=== PATIENT | female | born 1935 | race Native Hawaiian/Other Pacific Islander ===

== ENCOUNTER 2016-11-25 05:36 | Emergency (ER) | payer MEDICARE | END 2016-11-25 07:17 | disposition home or self-care (01) | DX: S20.229A Contusion of unspecified back wall of thorax, initial encounter (principal); W10.9XXA Fall (on) (from) unspecified stairs and steps, initial encounter; Y92.008 Other place in unspecified non-institutional (private) residence as the place of occurrence of the external cause ==

== ENCOUNTER 2018-05-11 07:44 | Emergency (ER) | payer MEDICARE ==
[2018-05-11] MEDS ORDERED: LIDOCAINE PATCH 5% TOP PRN (08:02)
--- NOTE | 2018-05-11 08:06 | ED Physician Documentation ---
History of Present Illness - Stated complaint Stated Complaint: HEAD INJ GLF - Chief complaint Chief Complaint: Neuro - Additonal information Additional information: hx from pt and family 83 f states she was acting a bit ff last night - making her morning tea at 11 PM and complaining of a MENA the sx improved with cold compresses and she went to bed she got up in the middle of the night to go to the bathroom and lost her balance and fell striking the R side of her head no LOC no MENA now R and posterior neck pain no numbness or weakness no fever no cough no NVD no urinary sx no CP no palp no dyspnea no abd pain no numbness or weakness Review of Systems Constitutional: denies: Fever, Chills Cardiac: denies: Chest pain / pressure Respiratory: denies: Dyspnea GI: denies: Nausea, Vomiting, Diarrhea : denies: Dysuria Musculoskeletal: reports: Neck pain, Joint pain Neurologic: reports: Head injury. 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 : None HEENT: None Psych: None Musculoskeletal: None Derm: None - Past Surgical History Past Surgical History: No - Present Medications Home Medications: Ambulatory Orders Medication Instructions Recorded Confirmed Amlodipine Besylate 10 mg PO 05/11/18 05/11/18 Lidocaine Patch 5% [Lidoderm Patch] 1 each TOP DAILY PRN #10 patch 05/11/18 Losartan Potassium 100 mg PO 05/11/18 - Allergies Allergies/Adverse Reactions: Allergies Allergy/AdvReac Type Severity Reaction Status Date / Time No Known Drug Allergies Allergy Verified 11/25/16 05:53 - Social History Does the pt smoke?: No Smoking Status: Never smoker Does the pt drink ETOH?: No Does the pt have substance abuse?: No - Immunizations Immunizations are current?: Yes - POLST Patient has POLST: No PD ED PE NORMAL - Vitals Vital signs reviewed: Yes - General General: Alert and oriented X 3 - HEENT HEENT: PERRL, Other (some slightl R FH swelling but family states that is old no skull TTP or laceration, no rao sign or racoon eyes) - Neck Neck: Other (most posterior R neck TTP) - Cardiac Cardiac: RRR - Respiratory Respiratory: No respiratory distress, Clear bilaterally - Abdomen Abdomen: Non tender - Derm Derm: Normal color - Extremities Extremities: Other (TTP posterior R shoulder, full int ext rotation, MSV intact) - Neuro Neuro: Alert and oriented X 3, lumber straightened 2-12 intact, No motor deficit, No sensory deficit, Normal speech Eye Opening: Spontaneous Motor: Obeys Commands Verbal: Oriented GCS Score: 15 Results - Vitals Vitals: Vital Signs - 24 hr 05/11/18 07:55 Temperature 36.3 C L Heart Rate 67 Respiratory 17 Rate Blood Pressure 161/79 H O2 Saturation 99 Oxygen O2 Source Room air - Labs Labs: Laboratory Tests 05/11/18 08:10 Urine Color YELLOW Urine Clarity CLEAR Urine pH 6.0 Ur Specific [place] 1.010 Urine Protein NEGATIVE Urine Glucose (UA) NEGATIVE Urine Ketones NEGATIVE Urine Occult Blood TRACE-LYSE Urine Nitrite NEGATIVE Urine Bilirubin NEGATIVE Urine Urobilinogen 0.2 (NORMAL) Ur Leukocyte Esterase NEGATIVE Ur Microscopic Review NOT INDICATED Urine Culture Comments NOT INDICATED - Rads (name of study) CTH Radiology: See rad report (no acute) CTCS Radiology: See rad report (no acute injury but thyroid mass req further wup) shoulder Radiology: See rad report (osteopenic but appears to have a proximal humerus fx) PD MEDICAL DECISION MAKING - Sepsis Event Vital Signs: Vital Signs - 24 hr 05/11/18 07:55 Temperature 36.3 C L Heart Rate 67 Respiratory 17 Rate Blood Pressure 161/79 H O2 Saturation 99 Oxygen O2 Source Room air Departure - Departure Disposition: 01 Home, Self Care Clinical Impression: Fall Qualifiers: Encounter type: initial encounter Qualified Code(s): W19.XXXA - Unspecified fall, initial encounter Head injury Qualifiers: Encounter type: initial encounter Qualified Code(s): S09.90XA - Unspecified injury of head, initial encounter Proximal humerus fracture Qualifiers: Encounter type: initial encounter Fracture type: closed Fracture morphology: other fracture Fracture alignment: nondisplaced Laterality: right Qualified Code (s): S42.294A - Other nondisplaced fracture of upper end of right humerus, initial encounter for closed fracture Condition: Good Instructions: ED Head Injury Closed, ED Fx Shoulder, ED Sling Follow-Up: [facility] [Provider Group] Jose Ackerman MD [Primary Care Provider] - Prescriptions: Lidocaine Patch 5% [Lidoderm Patch] 1 each TOP DAILY PRN #10 patch PRN Reason: Pain Comments: The urine sample did not show any infection The CT scan of your head was fine - no skull fracture, no bleeding, no tumors. The CT scan of your neck did not show any injury but the radiologist did notice a mass that is likely connected to your thyroid and recommends that you get a thyroid ultrasound - please have your PMD order this Your bones are very thin - hard to see well on xray - but it looks like there is a crack in the top of your humerus arm bone. So you need to wear the sling and follow up with orthopedics. Several times a day you should take your arm out of the sling and do the pendulum exercises (see attached paperwork) to keep the shoulder joint from freezing Tylenol ice and lidocaine opatches as needed for the pain
[2018-05-11 08:22] LABS: BILIRUBIN,URINE NEGATIVE (NEGATIVE); GLUCOSE, URINE (UA) NEGATIVE (NEGATIVE); KETONES,URINE (UA) NEGATIVE (NEGATIVE); LEUKOCYTE ESTERASE, URINE NEGATIVE (NEGATIVE); NITRITE,URINE NEGATIVE (NEGATIVE); OCCULT BLOOD,URINE TRACE-LYSE (NEGATIVE); PROTEIN,URINE NEGATIVE (NEGATIVE); UROBILINOGEN,URINE 0.2 (NORMAL) E.U./dL (NORMAL)
[2018-05-11 08:25] LABS: CLARITY,URINE CLEAR (CLEAR)
--- NOTE | 2018-05-11 08:49 | XRAY Report ---
Procedure Date: 05/11/2018 Accession Number: [id number] / [id number] Procedure: XR - Shoulder 3 View RT CPT Code: FULL RESULT: EXAM: RIGHT SHOULDER RADIOGRAPHY EXAM DATE: 05/11/2018 08:31 AM. CLINICAL HISTORY: Fall R posterior shoulder pain. COMPARISON: None. TECHNIQUE: 3 views. FINDINGS: Bones: Question linear lucency through the anatomic neck of the humerus on the external rotation view. Suboptimal evaluation for fracture secondary to diffuse demineralization. Joints: No dislocation. Severe chondrocalcinosis. Soft tissues: The visualized hemithorax grossly clear. IMPRESSION: Suboptimal evaluation secondary to demineralization. An acute, nondisplaced fracture through the anatomic neck of the humerus is not excluded. Consider CT for further evaluation if there is persistent clinical concern. RADIA
--- NOTE | 2018-05-11 08:56 | CT Report ---
Procedure Date: 05/11/2018 Accession Number: [id number] / [id number] Procedure: CT - Head W/O CPT Code: FULL RESULT: EXAM: CT HEAD EXAM DATE: 05/11/2018 08:45 AM. CLINICAL HISTORY: Acute pain due to trauma. COMPARISON: None. TECHNIQUE: Multiaxial CT images were obtained from the foramen magnum to the vertex. Reformats: Sagittal and coronal. IV contrast: None. In accordance with CT protocol optimization, one or more of the following dose reduction techniques were utilized for this exam: automated exposure control, adjustment of mA and/or KV based on patient size, or use of iterative reconstructive technique. FINDINGS: Parenchyma: No intraparenchymal hemorrhage. No evidence of mass, midline shift, or CT findings of acute infarction. Jennings-white differentiation is distinct. Diffuse chronic microangiopathic white matter changes are evident. Extraaxial Spaces: Normal for age. No subdural or epidural collections identified. Ventricles: The ventricles and cortical sulci are enlarged, consistent with age-related tissue loss. Sinuses and orbits: Imaged paranasal sinuses, orbits, and mastoids show no significant abnormality. Bones: No evidence of fracture or calvarial defect. Other: None. IMPRESSION: Generalized age-related cortical atrophic changes without evidence of acute intracranial abnormality. RADIA
--- NOTE | 2018-05-11 09:17 | CT Report ---
Procedure Date: 05/11/2018 Accession Number: [id number] / [id number] Procedure: CT - Cervical Spine W/O CPT Code: FULL RESULT: EXAM: CT CERVICAL SPINE WITHOUT CONTRAST DATE: 05/11/2018 08:45 AM. HISTORY: Fall, R head injury, neck pain. COMPARISONS: None. TECHNIQUE: Thin-section axial images were acquired of the cervical spine without contrast. Post-processing: Coronal and sagittal reformats. Other: None. In accordance with CT protocol optimization, one or more of the following dose reduction techniques were utilized for this exam: automated exposure control, adjustment of mA and/or KV based on patient size, or use of iterative reconstructive technique. FINDINGS: Alignment: Grade 1 anterolisthesis of C4 on C5 is likely degenerative. No other spondylolisthesis. Bones: No acute fracture. Interspace Levels/Facets: Moderate to severe degenerative change at the atlantoaxial articulation. Moderate to severe decreased disk height throughout. Severe multilevel facet arthropathy. Other: No prevertebral soft tissue thickening. Hypodense right paramedian mass, posterior to the thyroid, containing coarse calcifications measures 4.0 x 3.0 x 3.5 cm The lung apices are clear. IMPRESSION: 1. No acute fracture or subluxation in the cervical spine. 2. Right paramedian anterior neck mass, possibly associated with the thyroid gland. Recommend thyroid ultrasound for further evaluation if this has not been previously performed. RADIA
[2018-05-11 09:31] VITALS: BP 146/78
== END 2018-05-11 09:31 | disposition home or self-care (01) ==
LOC: ED 07:44
DX: S09.90XA Unspecified injury of head, initial encounter (principal); S42.294A Other nondisplaced fracture of upper end of right humerus, initial encounter for closed fracture; W18.30XA Fall on same level, unspecified, initial encounter; W22.8XXA Striking against or struck by other objects, initial encounter
CPT/HCPCS: 70450; 72125; 73030; 81003; 99283; A9270; 81001; 87086

== ENCOUNTER 2019-08-19 15:27 | Inpatient (IN) | payer MEDICARE, OTHER ==
[2019-08-19 16:47] LABS: BASOPHILS # (AUTO) 0.1 10^3/uL (0.0-0.1); BASOPHILS % (AUTO) 0.5 %; EOSINOPHILS % (AUTO) 0.2 %; LYMPHOCYTES % (AUTO) 7.8 %; MEAN CORPUSCULAR HEMOGLOBIN 30.3 pg (27.0-31.0); MEAN CORPUSCULAR HGB CONC 31.6 g/dL (32.0-36.0); MEAN PLATELET VOLUME 9.3 fL (7.9-10.8); MONOCYTES # (AUTO) 0.8 10^3/uL (0.0-1.0); MONOCYTES % (AUTO) 6.3 %; NEUTROPHILS % (AUTO) 84.6 %; PLT - PLATELET COUNT 330 10^3/uL (130-450); RED BLOOD COUNT 3.96 10^6/uL (4.20-5.40); RED CELL DISTRIBUTION WIDTH 12.8 % (12.0-15.0)
[2019-08-19] MEDS ORDERED: SODIUM CHLORIDE 0.9% 1,000 ML IV ONE ×2 (17:04→17:14)
--- NOTE | 2019-08-19 17:04 | ED Physician Documentation ---
History of Present Illness - Stated complaint Stated Complaint: FEMALE /LETHARGIC - Chief complaint Chief Complaint: General - History obtained from History obtained from: Family (The history is from the daughter. This is a demented 84-year-old woman who was in assisted living up until about a month ago and the daughter brought her home because she was developing some paranoia with her dementia and had to get out of there. She has help at home, but over the last 5 days or so she is had a fall without real injury but complaining of buttock and hip pain, she refuses to bear weight but more because of weakness than pain, she will not get out of bed, she not eating or drinking.) Review of Systems Unable to obtain: Dementia PD PAST MEDICAL HISTORY - Past Medical History Cardiovascular: None Respiratory: None Endocrine/Autoimmune: None GI: None NURSE RESEARCH: None : None HEENT: None Psych: None Musculoskeletal: None Derm: None - Past Surgical History Past Surgical History: No - Present Medications Home Medications: Ambulatory Orders Medication Instructions Recorded Confirmed Amlodipine Besylate 10 mg PO 05/11/18 05/11/18 Lidocaine Patch 5% [Lidoderm Patch] 1 each TOP DAILY PRN #10 patch 05/11/18 Losartan Potassium 100 mg PO 05/11/18 - Allergies Allergies/Adverse Reactions: Allergies Allergy/AdvReac Type Severity Reaction Status Date / Time No Known Drug Allergies Allergy Verified 11/25/16 05:53 - Social History Does the pt smoke?: No Smoking Status: Never smoker Does the pt drink ETOH?: No Does the pt have substance abuse?: No - Immunizations Immunizations are current?: Yes - POLST Patient has POLST: No PD ED PE NORMAL - General General: Other (Certain oriented to person, minimally cooperative, thin) - HEENT HEENT: PERRL, EOMI - Neck Neck: Supple, no meningeal sign, No bony TTP - Cardiac Cardiac: RRR, No murmur - Respiratory Respiratory: No respiratory distress, Clear bilaterally - Abdomen Abdomen: Non tender - Back Back: No CVA TTP, No spinal TTP - Extremities Extremities: Other (The right hip is nontender and I am able to passively internally and externally rotate it without pain) - Neuro Eye Opening: To Voice Motor: Obeys Commands Verbal: Confused GCS Score: 13 Results - Vitals Vitals: Vital Signs - 24 hr 08/19/19 08/19/19 15:55 18:36 Temperature 36.9 C 36.3 C L Heart Rate 85 86 Respiratory 18 20 Rate Blood Pressure 153/106 H 200/96 H O2 Saturation 97 99 Oxygen O2 Source Room air - Labs Labs: Laboratory Tests 08/19/19 08/19/19 08/19/19 16:38 16:38 18:30 WBC 13.0 H RBC 3.96 L Hgb 12.0 Hct 38.0 MCV 96.0 MCH 30.3 MCHC 31.6 L RDW 12.8 Plt Count 330 MPV 9.3 Neut # (Auto) 11.0 H Lymph # (Auto) 1.0 L [place] # (Auto) 0.8 Eos # (Auto) 0.0 Baso # (Auto) 0.1 Absolute Nucleated RBC 0.00 Nucleated RBC % 0.0 Sodium 142 Potassium 4.4 Chloride 110 Carbon Dioxide 20 L Anion Gap 12.0 BUN 59 H Creatinine 3.3 H Estimated GFR (MDRD) 13 L Glucose 94 Calcium 16.2 H* Total Bilirubin 1.1 H AST 70 H ALT 22 Alkaline Phosphatase 194 H Total Protein 8.0 Albumin 3.8 Globulin 4.2 Albumin/Globulin Ratio 0.9 L Lipase 34 Urine Color YELLOW Urine Clarity CLEAR Urine pH 6.0 Ur Specific [place] 1.020 Urine Protein 100 H Urine Glucose (UA) NEGATIVE Urine Ketones TRACE Urine Occult Blood LARGE H Urine Nitrite NEGATIVE Urine Bilirubin NEGATIVE Urine Urobilinogen 0.2 (NORMAL) Ur Leukocyte Esterase NEGATIVE Urine RBC None Seen Urine WBC 0-3 Ur Squamous Epith Cells NONE SEEN Urine Bacteria None Seen Ur Microscopic Review INDICATED Urine Culture Comments NOT INDICATED PD MEDICAL DECISION MAKING - ED course ED course: This is a braden 84-year-old woman with dementia presents with worsened mental status and is found to be hypercalcemic. She does have some level of chronic hypercalcemia, but this is much worse than her baseline and is associated with acute renal failure. Spoke with Dr. Al for admission at 7:42 PM. Departure - Departure Disposition: [facility] DC/Xfer Clinical Impression: Hypercalcemia ARF (acute renal failure) Qualifiers: Acute renal failure type: unspecified Qualified Code(s): N17.9 - Acute kidney failure, unspecified Condition: Serious
[2019-08-19 17:10] LABS: ALBUMIN 3.8 g/dL (3.2-5.5); ALBUMIN/GLOBULIN RATIO 0.9 (1.0-2.2); BILIRUBIN,TOTAL 1.1 mg/dL (0.2-1.0); CREATININE 3.3 mg/dL (0.4-1.0)
[2019-08-19 17:12] LABS: CALCIUM 16.2 mg/dL (8.5-10.3)
--- NOTE | 2019-08-19 17:34 | XRAY Report ---
Reason: R hip pain s/p fall Procedure Date: 08/19/2019 Accession Number: [id number] / [id number] Procedure: XR - Hip w/Pelvis 2-3V RT CPT Code: Final Report FULL RESULT: EXAM: RIGHT HIP RADIOGRAPHY EXAM DATE: 08/19/2019 04:26 PM. CLINICAL HISTORY: R hip pain s/p fall. COMPARISON: None. TECHNIQUE: 2 views. FINDINGS: Bones: Normal. No fractures or bone lesion. 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 Soft Tissues: Normal. No soft tissue swelling. A calcified focus is seen projected over the left iliac bone/left lower quadrant; likely a fecolith. IMPRESSION: No acute displaced fracture or malalignment. RADIA
[2019-08-19 18:57] LABS: BILIRUBIN,URINE NEGATIVE (NEGATIVE); GLUCOSE, URINE (UA) NEGATIVE (NEGATIVE); KETONES,URINE (UA) TRACE mg/dL (NEGATIVE); LEUKOCYTE ESTERASE, URINE NEGATIVE (NEGATIVE); NITRITE,URINE NEGATIVE (NEGATIVE); OCCULT BLOOD,URINE LARGE (NEGATIVE); PROTEIN,URINE 100 mg/dL (NEGATIVE); UROBILINOGEN,URINE 0.2 (NORMAL) E.U./dL (NORMAL)
[2019-08-19 19:29] LABS: CLARITY,URINE CLEAR (CLEAR)
[2019-08-19 19:30] LABS: BACTERIA,URINE None Seen /HPF (None Seen); RBC,URINE None Seen /HPF (0-5); SQUAMOUS EPITHELIAL CELL,UR NONE SEEN (<= Few)
[2019-08-19] MEDS ORDERED: ONDANSETRON 4 MG/2 ML VIAL IVP PRN (19:42)
[2019-08-19] MEDS ORDERED: ONDANSETRON ODT 4 MG TABLET TL PRN (19:42)
[2019-08-19] MEDS ORDERED: CALCITONIN 400 UNITS/2 ML VIAL IM ONE ×2 (19:42→23:00)
[2019-08-19] MEDS ORDERED: oxyCODONE 5 MG TABLET PO PRN (19:42)
[2019-08-19] MEDS ORDERED: amLODIPine 5 MG TABLET PO SCH (19:49)
[2019-08-19] MEDS ORDERED: LOSARTAN 50 MG TABLET PO SCH (19:50)
[2019-08-19] MEDS ORDERED: DENOSUMAB 60 MG/ML SYRINGE SUBQ ONE ×2 (19:52→23:00)
[2019-08-19] MEDS: SODIUM CHLORIDE 0.9% 1,000 ML IV SCH ×2 (21:22→23:04)
[2019-08-19] MEDS: FAMOTIDINE 20 MG/2 ML VIAL IVP SCH (21:23)
[2019-08-19] MEDS: amLODIPine 5 MG TABLET PO SCH (22:24)
[2019-08-19] MEDS: LOSARTAN 50 MG TABLET PO SCH (22:29)
--- NOTE | 2019-08-19 22:52 | ADVANCE CARE PLANNING NOTE ---
Advance Care Planning - Planning Encounter Date: 08/19/19 Time: 22:49 Purpose: DaughterKRISHNA Wendy Pulu @ [phone] wants to review resuscitative status Parties in Attendance: Patient, Daughter, hospitalist Decisional Capacity of the Patient: impaired. She is confused, delusional, mumbling and has been paranoid for weeks now - Diagnosis for Encounter (1) Hyperparathyroidism Summary: Elderly [place] female who was identified as having hypercalcemia as early as 2012. By 2013, calcium level was between 12-13 and she was identified as having an elevated PTH at approximately 838. She was seen by endocrinology in October 2014. With their visit, they determined that she did not have a history of osteoporosis (no DEXA scan was done), that she did not have kidney stones, and was asymptomatic from this elevated calcium. The plan was to follow the calcium level and when it was greater than 13 to be considered for parathyroidectomy. However the patient has been adamant that she never wanted surgery, no matter how high the calcium. This thought process is a consistent one for her. In review of the medical record for all of her medical problems including hypertension and asthma she is minimally compliant. She is very strong-willed and does not believe in taking medications and does not like side effects and as such is off her medications more often than she is on them. - Encounter Subjective/Patient's Story: She was born and raised in [facility]. First was some own, second was in [place], third has been with someone. [place] She does have another child, a son, but he does not live on the [place]. She and her were both very active individuals. Played a lot of golf. However, as age has come up on them, they have become frail, needing more help. They moved into [facility] April 2019. However the patient is hated living there. She has become paranoid and delusional and feels that people are out to hurt her, and she is very suspicious of them. So her daughter brought her home to live with her 3 weeks ago. It is been very difficult because mom is very noncompliant, suspicious. In addition, her son-in-law is ill with a cold, and he is pretty sick living upstairs. Mom is living downstairs. The patient's daughter is overwhelmed. She describes mom is always very independent. Very stubborn. Does not like taking medications. Blood pressure has been as high as 200 systolic at times and she refuses to take her blood pressure medicine. Asthma has been relatively stable. She also refuses to take her Qvar and albuterol. She has been gradually losing weight. Back in October 2006 she was 166 pounds, and in May 2019 she is now 113 pounds. Daughter feels like mom is failing. She is resigned herself to the fact that mom actually may in the near future. With 1 of their visits to her primary care provider, this past May, she did fell out a physician order for life-sustaining treatment. However it is not dated. That order states that the patient wanted to be full code with full treatment. However, her daughter, who is her power of managing attorney. Feels that is not in her mother's best interest. She found it very difficult to bring that topic up in the office that day. She definitely has the forms stating that she is the power of managing attorney. Mom is been failing, losing weight, fading, becoming more delusional and paranoid, and she does not feel that it is in her mother's best interest to be a full code. Her quality of life, and unhappiness overall is a consideration. While she does hope that this current admission will treat the hypercalcemia and make her mother feel better, she does not have expectations that her mother's life will be substantially changed. Mom will still be independent, noncompliant, and refuse surgery. So she expects the calcium to climb up again. I did explain that sometimes we could give Prolia or Xgeva on a regular basis. The daughter explained that she does not think mom will be compliant with that. Objective/Medical Story: Elderly [place] female. Records reviewed from her primary care provider office. There is sometimes a year in between visits. She was a no-show for her August 03 and August 05 visits. She has become lethargic, has decreased appetite, is falling. Went to go live at [facility] April 2019 did not like it and is become more delusional and paranoid. As such she [facility] and went to go live with her daughter for the last 3 weeks. Her past medical history is that of hypertension, asthma, deafness. Noncompliant with her medical regime for as far back as a medical record goes. She now comes into the hospital with severe lethargy, unable to get out of bed, and in the emergency room has severe hypercalcemia to 16 with acute renal failure and a creatinine over 3. Goals of Care: 1. Focus on keeping the patient comfortable with as limited interventions as possible. However, the daughter still wants her to be admitted to the hospital if she needs things such as antibiotics for pneumonia, blood transfusions for GI bleeds, surgery for fractures, etc.The daughter chooses this because she wants to honor her mom's philosophy of not liking doctors and not liking being in the hospitals. It is too hard to get her mom to be compliant. 2. IV fluids, Prolia, calcitonin to bring down the calcium. See if this will then help with mentation, weakness, anorexia. Plan: Hospitalization to treat her hypercalcemia and renal failure. Transition the patient to possible palliative care consultation in the near future. New POLST form filled out for daughter to take home and copy for us. Code Status: Do Not Attempt Resuscitation Time spent on advance care plannin
[2019-08-19] MEDS ORDERED: DENOSUMAB 120 MG/1.7 ML VIAL SUBQ ONE (23:00)
[2019-08-20] MEDS: SODIUM CHLORIDE FLUSH 0.9% 10 ML SYRINGE IVP SCH ×3 (00:40→16:58)
--- NOTE | 2019-08-20 01:54 | HISTORY & PHYSICAL EXAMINATION ---
DATE OF SERVICE: 08/19/2019 Physician: Batsheva Al MD PRIMARY CARE PROVIDER: Steph Becker PA-C ADMITTING PROVIDER: Batsheva Al MD CHIEF COMPLAINT: Fall five days ago, was not able to get out of bed since then. HISTORY OF PRESENT ILLNESS: The patient is an elderly Portuguese female whose past medical history is that of hypertension, asthma, and probable dementia. Her philosophy with regard to taking care of herself and interacting with doctors has always been one of "less is more." In reading the medical record in [facility], which also has copies of her previous chart with another physician, this patient is stoutly noncompliant. She is off of her medications more than she is on them. At times, her systolic blood pressure has been close to 200 and she still does not want to take medications because "they have too many side effects." She was to her third and came to live on [facility] to be close to her daughter. They are described as an active elderly couple who love to golf, go out with dinner to see friends. However, the patient has been gradually losing weight when you see the medical record. She was 166 pounds in October 2006, 152 pounds in May 2008, 145 pounds in June 2009, 146 pounds in January 2011. She has been steadily continuing to lose weight, so that she was 120 pounds July 2016, and down to 113 pounds since May 2018. She has been maintained at 113 pounds. She was identified as having hypercalcemia in 2012 and was diagnosed with hyperparathyroidism by 2013. PTH was about 834. The patient was sent to see an personnel counselor in October 2014. At that point in time, the personnel counselor felt that she did not have a history of osteoporosis (but she had no DEXA scan ordered), no history of kidney stones, and no "stones, moans, abdominal groans" symptomatic of hyperparathyroidism. As such, he recommended that she not get her parathyroid removed unless her calcium was 13 or above or she was developing symptoms. The patient was, at one point, offered surgery, but she declined it. She just does not like seeing physicians and getting procedures. She has been sporadic in seeing her doctors. She has had sporadic follow up for the calcium levels. She was seen a few times in 2018 for her hypertension. Then, after April 2018 no visits until April 2019. She has been a no show for her visit is 08/03/2019, 08/05/2019. The office has called the patient to warn her that she is in danger of being discharged from the office and the patient declined to remake another appointment. However, this patient is demented. She has been gradually failing, having decreased appetite, having more increasing delusions of paranoia. The family convinced her to move into [facility], April 2019. She is to her third . He is in his 80s and moved in with her, but she has been a handful. He cannot handle her delusions, suspiciousness, and refusal to take her medications or to eat. The daughter finally took her out of [facility] three weeks ago to live with her. It has been very difficult. Mom continues to be suspicious, difficult to coax into taking her food and medications. She fell about a week ago. No syncope. She seemed to have lost her balance and tripped. But she has been complaining of buttock pain, sacral pain, and hip pain. With this fall, she just started not getting out of bed. She has not been eating or drinking. Her confusion, and delusional thought process with paranoia continues and is getting worse. In the emergency room, Dr. White saw this patient. Temperature is 36.9, pulse 85, blood pressure 153/106, respirations 18 and 97% on room air. In the emergency room, her blood pressure went as high as 200/96. She is a frail, elderly, female. Mumbling, not making much sense. No real findings on cardiovascular exam. However, her BUN is 59 and creatinine is 3.3. Her BUN was 25 in February 2015 and 24 in August 2014. Her creatinine is 3.3. She was 1.3 in August 2014, and 1.4 in February 2015. Her PTH level was 843 back in August 2014. She is now 3077. Urinalysis has a large amount of occult blood, but no red cells were seen, 0-3 white cells, no squamous epithelial cells, no bacteria. Her hip and pelvis x-ray have a calcified focus projected over the left iliac bone/left lower quadrant. Likely a fecalith. But no acute displaced fracture or malalignment. The patient is now admitted to treat the calcium. PAST MEDICAL HISTORY 1. Hypertension. 2. Dementia. 3. Asthma. 4. Noncompliance with medications. 5. Dyspnea on exertion January 2011 that really affected her golf game. A stress test was negative 01/30/2011. She was felt to have uncontrolled hypertension at that time with a systolic of over 190. Coaxed into trying to take her blood pressure medicines. 6. Deafness. 7. G2, P2. ALLERGIES: NO KNOWN DRUG ALLERGIES. MEDICATIONS: Medications that she is supposed to be taking are: 1. Amlodipine 10 mg a day. 2. Losartan 100 mg a day. SOCIAL HISTORY: She is from [place]. three times. First was Portuguese. She did have a son with her first . Second was an [place] gentleman and she had a daughter with him. Unfortunately, he of a heart attack at the age of 47. Her third is Portuguese. They moved to the [facility] to be close to the daughter, who has been keeping an eye out for them. The patient never smoked. Never had a problem with alcohol abuse. No history of recreational substance abuse. FAMILY HISTORY: Mom of complications of appendicitis in the [place] [employer]. Dad was an alcoholic and of complications of that. She had two sisters and one brother. One brother of liver cancer. Two sisters are alive, but elderly and frail and no major medical issues that she is aware of. Two children are healthy. Weight is problematic, but no blood pressure, cancer, heart attack, stroke, or parathyroid issues. PREVIOUS LEVEL OF FUNCTION: The patient has become increasingly frail, and needs help with activities of daily living. She was needing help to go to the bathroom, to be prompted more than anything else. Prompted to eat, prompted to bathe. But since falling, she has been in bed, unable to get out of bed. REVIEW OF SYSTEMS: Review of systems are from the daughter, the patient is unable to cooperate. Deafness is evident, poor appetite, decreasing urinary output, no bowel movements, hurting all over, but no specific coughing, wheezing, chest congestion, cold. There has been no orthopnea, edema, complaints of chest pain or palpitations. She has urinary incontinence. She has become increasingly forgetful, increasingly paranoid and delusional. As far as the daughter knows, she is not hallucinating. Rest of review of systems is negative per the daughter. PHYSICAL EXAMINATION GENERAL: The patient is on Med/Surg. She has received IV fluid wide open from the emergency room. Temperature is 36.8, pulse is 88, blood pressure 183/103, respirations 16 and 100% on room air. She was lethargic and unable to safely swallow while in the emergency room. She is now a little bit more awake, trying to talk to the daughter, and able to take the blood pressure medicines I have ordered. On general physical exam, she is a severely frail, malnourished, female at 5 feet 1 inch tall 43 kg. Bilateral temporal wasting, severely decreased muscle mass present. She is so weak, she can barely roll over on her left side. HEENT: Unremarkable other than dry cracked lips, dry and pale oral mucosa. Voice is low, hoarse, mumbling. The pupils are reactive, sclerae nonicteric. NECK: Supple. No JVD. LUNGS: No crackles, rhonchi, wheezing or increased respiratory effort. HEART: PMI is normally placed with a regular rate and rhythm and a soft systolic ejection murmur. ABDOMEN: Soft, scaphoid abdominal musculature, nontender, hypoactive bowel sounds. No masses palpable. EXTREMITIES: Remarkable for the severely decreased muscle mass. Thin. No clubbing, cyanosis or edema. 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 NEUROLOGIC: She is oriented to her daughter and who she is. She does not know where she is, she does not know the date, she does not know why she is here, needs constant reassurance, did not get out of bed. She lays there and tries to get out of bed, she has spontaneous purposeful movement of arms and legs. There is no focal weakness. But she cannot cooperate with reflex exam, or strength testing exam/strength challenge exams. Toes are downgoing. There are no tremors. Daughter tells me that her speech is not making any sense, and she is mumbling, and speaking about things that make no sense. LABORATORY DATA: Labs, cell count, urinalysis, and plain films reviewed in history of present illness. Calcium is 16.2. Total bilirubin 1.1. AST 70. Alkaline phosphatase 194. ASSESSMENT PLAN: 1. This elderly, female who presents with severe metabolic encephalopathy from documented hyperparathyroidism on labs with hypercalcemia. I explained to the daughter that the metabolic encephalopathy is most likely a worsening of a baseline dementia and cognitive deficit. However, her renal failure and hypercalcemia have made the "stones, moans, abdominal groans," much worse. Daughter does feel that all of those descriptions apply to mom. PLAN a. Inpatient admission. I anticipate this needing two to three days to correct her electrolytes. b. Attestation: The patient will be discharged within 96 hours. 2. Acute renal failure. Secondary to hypercalcemia. Plan: a. Lasix will be avoided. In review of the literature, they recommend normal saline at 200-300 mL an hour. b. Calcitonin is not available tonight. Pharmacist has come in and there is nasal calcitonin, but not subcutaneous calcitonin. As such, we will order it and then hopefully it will arrive by Thursday (today is Thursday). c. Prolia is not available, but Xgeva. As such, we will get a subcutaneous injection of 120 mg. d. Repeat calcium in the morning and monitor for hypoglycemia. 3. Hyperparathyroidism. The patient has no cognitive deficit that her power of director stars is kicked in with her daughter. Daughter says that no matter how much she has tried to talk mom into this surgery, mom has refused. Daughter doubts that she will be able to convince mom even after this admission. As such, the patient may need to be discharged on chronic injectables to control the calcium. 4. Hypertension that is uncontrolled due to noncompliance. She is awake enough now to take her Norvasc and Losartan and that will be given to her and resumed here. My goal is to at least get her into the mid 100 range. Anything between 140-150 is acceptable in this elderly woman who is usually as high as 180-200 systolic. I cannot believe that aiming for below 140 will achieve anything other than annoying her, and will most likely not change her overall life span. 5. History of asthma. Currently, it is controlled. We will order albuterol p.r.n. if necessary. a. Noncompliance with medical regime noted. Power of director stars is invoked by daughter. 6. Abnormal loss of weight noted. Most likely due to the hypercalcemia inducing anorexia and decreased appetite. Also, probably due to dementia. Nutrition consult. Hopefully, her appetite will improve once her calcium is below 10. 7. DO NOT RESUSCITATE status. Advanced care planning discussion dictated on a separate note. 8. Deep venous thrombosis prophylaxis will be SÁNCHEZ lopez. TD: 08/19/2019 23:38 EDITH
[2019-08-20] MEDS: SODIUM CHLORIDE 0.9% 1,000 ML IV SCH ×2 (02:42→06:24)
[2019-08-20] MEDS ORDERED: SODIUM CHLORIDE 0.9% 1,000 ML IV ONE (04:24)
[2019-08-20] MEDS ORDERED: SODIUM CHLORIDE FLUSH 0.9% 10 ML SYRINGE ONE (04:24)
[2019-08-20 05:21] LABS: BASOPHILS # (AUTO) 0.1 10^3/uL (0.0-0.1); BASOPHILS % (AUTO) 0.4 %; EOSINOPHILS % (AUTO) 0.1 %; HGB - HEMOGLOBIN 10.7 g/dL (12.0-16.0); LYMPHOCYTES # (AUTO) 0.9 10^3/uL (1.5-3.5); LYMPHOCYTES % (AUTO) 6.2 %; MEAN CORPUSCULAR HEMOGLOBIN 29.8 pg (27.0-31.0); MEAN CORPUSCULAR HGB CONC 30.1 g/dL (32.0-36.0); MEAN CORPUSCULAR VOLUME 99.2 fL (81.0-99.0); MEAN PLATELET VOLUME 9.5 fL (7.9-10.8); MONOCYTES # (AUTO) 0.7 10^3/uL (0.0-1.0); NEUTROPHILS # (AUTO) 12.2 10^3/uL (1.5-6.6); NEUTROPHILS % (AUTO) 87.7 %; PLT - PLATELET COUNT 292 10^3/uL (130-450); RED BLOOD COUNT 3.59 10^6/uL (4.20-5.40); RED CELL DISTRIBUTION WIDTH 13.1 % (12.0-15.0); WHITE BLOOD COUNT 13.9 x10^3/uL (4.8-10.8)
[2019-08-20 05:38] LABS: CREATININE 2.9 mg/dL (0.4-1.0); MAGNESIUM 1.5 mg/dL (1.7-2.8); PHOSPHORUS 4.6 mg/dL (2.5-4.6)
[2019-08-20 05:39] LABS: CALCIUM 15.1 mg/dL (8.5-10.3)
--- NOTE | 2019-08-20 06:47 | PROVIDER PROGRESS NOTE ---
Subjective - Prog Note Date Prog Note Date: 08/20/19 Prog Note Time: 06:45 - Subjective Subjective: she has been up all night. sitting up in bed, sometimes w legs thrown over the edge, sometimes with legs crisscrossed, sometime facing the foot of the bed, sometimes facing the head. Mumbling. Constantly rocking herself. will answer when questioned. Gets up to urinate when prompted. Bladder scan shows retention of 300's to 400's before that. Current Medications - Current Medications Current Medications: Active Medications Acetaminophen (Tylenol) 650 mg PO Q4HR PRN PRN Reason: Pain 1 to 4 Amlodipine Besylate (Norvasc) 10 mg PO DAILY [facility] Last Admin: 08/19/19 22:24 Dose: 10 mg Famotidine (Pepcid) 20 mg IVP BID [facility] Last Admin: 08/19/19 21:23 Dose: 20 mg Sodium Chloride (Normal Saline 0.9%) 1,000 mls @ 300 mls/hr IV .Q3H20M [facility] Last Admin: 08/20/19 06:24 Dose: 300 mls/hr Losartan Potassium (Cozaar) 100 mg PO DAILY [facility] Last Admin: 08/19/19 22:29 Dose: 100 mg Ondansetron HCl (Zofran Inj) 4 mg IVP Q6HR PRN PRN Reason: Nausea / Vomiting Ondansetron HCl (Zofran Odt) 4 mg TL Q6HR PRN PRN Reason: Nausea / Vomiting Oxycodone HCl (Roxicodone) 5 mg PO Q4HR PRN PRN Reason: Pain 5 to 7 Sodium Chloride (Normal Saline Flush 0.9%) 10 ml IVP PRN PRN PRN Reason: NEEDED PER PROVIDER ORDERS Sodium Chloride (Normal Saline Flush 0.9%) 10 ml IVP 0100,0900,1700 [facility] Last Admin: 08/20/19 00:40 Dose: Not Given Amlodipine Besylate 10 mg PO 05/11/18 Losartan Potassium 100 mg PO 05/11/18 Objective - Vital Signs/Intake & Output Reviewed Vital Signs: Yes Vital Signs: Vital Signs x48h Temp Pulse Resp BP Pulse Ox 08/20/19 00:00 36.7 C 75 16 139/90 H 99 Intake & Output: Intake & Output 11/1308/18/19 08/19/19 08/20/19 23:59 23:59 23:59 23:59 Intake Total 1510 2000 Output Total 0 550 Balance 1510 1450 - Objective General Appearance: positive: Alert, Other (rocking back and forth, elderly female w cachexia, no respiratory or cardiac distress) Eyes Bilateral: positive: PERRL, EOMI ENT: positive: Dry mucous membranes Neck: positive: No JVD. negative: Stiff neck, Carotid bruit Respiratory: positive: Chest non-tender. negative: Wheezes, Rales, Rhonchi Cardiovascular: positive: Regular rate & rhythm, Systolic murmur. negative: Gallop/S4, Friction rub Abdomen: positive: Non-tender, No organomegaly, Nml bowel sounds, No distention Skin: positive: Warm, Dry, Pallor Extremities: positive: Non-tender, No pedal edema Neurologic/Psychiatric: positive: CN's nml (2-12) (but you have to repeat yourself.), Motor nml, Disoriented to person, Disoriented to place, Disoriented to time, Other (when asked, "what are your doing?" as she faces head of bed and plays with the sheets, she laughs and states "I don't know") - Lab Results Fish Bones: 08/20/19 04:55 08/20/19 04:55 Other Labs: Lab Results x24hrs 08/20/19 08/20/19 08/19/19 Range/Units 04:55 04:55 18:30 WBC 13.9 H (4.8-10.8) x10^3/uL RBC 3.59 L (4.20-5.40) 10^6/uL Hgb 10.7 L (12.0-16.0) g/dL Hct 35.6 L (37.0-47.0) % MCV 99.2 H (81.0-99.0) fL MCH 29.8 (27.0-31.0) pg MCHC 30.1 L (32.0-36.0) g/dL RDW 13.1 (12.0-15.0) % Plt Count 292 (130-450) 10^3/uL MPV 9.5 (7.9-10.8) fL Neut # (Auto) 12.2 H (1.5-6.6) 10^3/uL Lymph # (Auto) 0.9 L (1.5-3.5) 10^3/uL Stanton # (Auto) 0.7 (0.0-1.0) 10^3/uL Eos # (Auto) 0.0 (0.0-0.7) 10^3/uL Baso # (Auto) 0.1 (0.0-0.1) 10^3/uL Absolute Nucleated RBC 0.00 x10^3/uL Nucleated RBC % 0.0 /100WBC Sodium 146 H (135-145) mmol/L Potassium 4.0 (3.5-5.0) mmol/L Chloride 117 H (101-111) mmol/L Carbon Dioxide 18 L (21-32) mmol/L Anion Gap 11.0 (6-13) BUN 52 H (6-20) mg/dL Creatinine 2.9 H (0.4-1.0) mg/dL Estimated GFR (MDRD) 16 L (>89) Glucose 92 (70-100) mg/dL Calcium 15.1 H* (8.5-10.3) mg/dL Phosphorus 4.6 (2.5-4.6) mg/dL Magnesium 1.5 L (1.7-2.8) mg/dL Total Bilirubin (0.2-1.0) mg/dL AST (10-42) IU/L ALT (10-60) IU/L Alkaline Phosphatase (42-121) IU/L Total Protein (6.7-8.2) g/dL Albumin (3.2-5.5) g/dL Globulin (2.1-4.2) g/dL Albumin/Globulin Ratio (1.0-2.2) Lipase (22-51) U/L PTH Intact (12-88) pg/mL Urine Color YELLOW Urine Clarity CLEAR (CLEAR) Urine pH 6.0 (5.0-7.5) PH Ur Specific [place] 1.020 (1.002-1.030) Urine Protein 100 H (NEGATIVE) mg/dL Urine Glucose (UA) NEGATIVE (NEGATIVE) mg/dL Urine Ketones TRACE (NEGATIVE) mg/dL Urine Occult Blood LARGE H (NEGATIVE) Urine Nitrite NEGATIVE (NEGATIVE) Urine Bilirubin NEGATIVE (NEGATIVE) Urine Urobilinogen 0.2 (NORMAL) (NORMAL) E.U./dL Ur Leukocyte Esterase NEGATIVE (NEGATIVE) Urine RBC None Seen (0-5) /HPF Urine WBC 0-3 (0-5) /HPF Ur Squamous Epith Cells NONE SEEN (<= Few) Urine Bacteria None Seen (None Seen) /HPF Ur Microscopic Review INDICATED Urine Culture Comments NOT INDICATED 08/19/19 08/19/19 08/19/19 Range/Units 16:38 16:38 16:38 WBC 13.0 H (4.8-10.8) x10^3/uL RBC 3.96 L (4.20-5.40) 10^6/uL Hgb 12.0 (12.0-16.0) g/dL Hct 38.0 (37.0-47.0) % MCV 96.0 (81.0-99.0) fL MCH 30.3 (27.0-31.0) pg MCHC 31.6 L (32.0-36.0) g/dL RDW 12.8 (12.0-15.0) % Plt Count 330 (130-450) 10^3/uL MPV 9.3 (7.9-10.8) fL Neut # (Auto) 11.0 H (1.5-6.6) 10^3/uL Lymph # (Auto) 1.0 L (1.5-3.5) 10^3/uL Stanton # (Auto) 0.8 (0.0-1.0) 10^3/uL Eos # (Auto) 0.0 (0.0-0.7) 10^3/uL Baso # (Auto) 0.1 (0.0-0.1) 10^3/uL Absolute Nucleated RBC 0.00 x10^3/uL Nucleated RBC % 0.0 /100WBC Sodium 142 (135-145) mmol/L Potassium 4.4 (3.5-5.0) mmol/L Chloride 110 (101-111) mmol/L Carbon Dioxide 20 L (21-32) mmol/L Anion Gap 12.0 (6-13) BUN 59 H (6-20) mg/dL Creatinine 3.3 H (0.4-1.0) mg/dL Estimated GFR (MDRD) 13 L (>89) Glucose 94 (70-100) mg/dL Calcium 16.2 H* (8.5-10.3) mg/dL Phosphorus (2.5-4.6) mg/dL Magnesium (1.7-2.8) mg/dL Total Bilirubin 1.1 H (0.2-1.0) mg/dL AST 70 H (10-42) IU/L ALT 22 (10-60) IU/L Alkaline Phosphatase 194 H (42-121) IU/L Total Protein 8.0 (6.7-8.2) g/dL Albumin 3.8 (3.2-5.5) g/dL Globulin 4.2 (2.1-4.2) g/dL Albumin/Globulin Ratio 0.9 L (1.0-2.2) Lipase 34 (22-51) U/L PTH Intact 3077 H (12-88) pg/mL Urine Color Urine Clarity (CLEAR) Urine pH (5.0-7.5) PH Ur Specific [place] (1.002-1.030) Urine Protein (NEGATIVE) mg/dL Urine Glucose (UA) (NEGATIVE) mg/dL Urine Ketones (NEGATIVE) mg/dL Urine Occult Blood (NEGATIVE) Urine Nitrite (NEGATIVE) Urine Bilirubin (NEGATIVE) Urine Urobilinogen (NORMAL) E.U./dL Ur Leukocyte Esterase (NEGATIVE) Urine RBC (0-5) /HPF Urine WBC (0-5) /HPF Ur Squamous Epith Cells (<= Few) Urine Bacteria (None Seen) /HPF Ur Microscopic Review Urine Culture Comments ABX Reporting Has patient been on IV antibiotics over the past 48 hours?: No Assessment/Plan - Problem List (1) Acute metabolic encephalopathy Impression: she was lethargic and slow to respond when she was transferred from the ER. As she received IVF has been more alert but not more oriented. Still mumbling for the most part. Flashes of appropriate answers to questions now present whereas they were not last night. Plan: continue treatment of for her calcium (2) Hypercalcemia Impression: from hyperparathyroidism. She has refused surgery in the past. Will see if she becomes lucid enough to agree to it now that her calcium is so severely elevated. but that decision will be made once this acute intervention is past. Calcium 16.2>15.1 Plan: continue IVF but watch her sodium, it is creeping up. she did receive zgiva and calcitonin ordered for Thursday (today is Thursday) change NS to LR (3) Benign essential HTN Impression: highest systolic was 200 but she is 139 this morning once we gave her her meds. Plan: continue losartan 100 and norvasc 10 (4) Acute worsening of stage 3 chronic kidney disease Impression: baseline creatinine 1.3> 3.3>2.9 baseline BUN 24> 59>52 slowly improving. Plan: continue IVF and monitor renal function. (5) Asthma Impression: without exacerbation. Plan: albuterol prn Qualifiers: Asthma severity: unspecified severity (6) Weight loss, abnormal Impression: nutrition consult on Thursday. add diet supplement while here.
[2019-08-20] MEDS ORDERED: MAGNESIUM SULFATE 2 GM in SODIUM CHLORIDE 0.9% 50 ML IV ONE (08:00)
[2019-08-20] MEDS: LOSARTAN 50 MG TABLET PO SCH (08:09)
[2019-08-20] MEDS: amLODIPine 5 MG TABLET PO SCH (08:09)
[2019-08-20] MEDS: FAMOTIDINE 20 MG/2 ML VIAL IVP SCH ×2 (08:09→20:58)
[2019-08-20] MEDS: LACTATED RINGERS 1,000 ML IV SCH ×4 (10:31→21:30)
[2019-08-20] MEDS ORDERED: HALOPERIDOL 5 MG/ML VIAL IVP PRN (13:28)
[2019-08-20] MEDS ORDERED: amLODIPine 5 MG TABLET PO STA (16:31)
[2019-08-20 16:45] LABS: CREATININE 2.8 mg/dL (0.4-1.0)
[2019-08-20 16:46] LABS: CALCIUM 13.9 mg/dL (8.5-10.3)
[2019-08-20] MEDS: SODIUM CHLORIDE FLUSH 0.9% 10 ML SYRINGE IVP PRN (20:58)
[2019-08-21] MEDS: LACTATED RINGERS 1,000 ML IV SCH ×7 (01:24→21:39)
[2019-08-21] MEDS: SODIUM CHLORIDE FLUSH 0.9% 10 ML SYRINGE IVP SCH ×3 (01:25→17:19)
[2019-08-21 04:53] LABS: BASOPHILS # (AUTO) 0.1 10^3/uL (0.0-0.1); BASOPHILS % (AUTO) 0.3 %; EOSINOPHILS # (AUTO) 0.1 10^3/uL (0.0-0.7); EOSINOPHILS % (AUTO) 0.8 %; HGB - HEMOGLOBIN 10.1 g/dL (12.0-16.0); LYMPHOCYTES % (AUTO) 7.1 %; MEAN CORPUSCULAR HGB CONC 31.7 g/dL (32.0-36.0); MEAN CORPUSCULAR VOLUME 94.7 fL (81.0-99.0); MEAN PLATELET VOLUME 9.4 fL (7.9-10.8); MONOCYTES # (AUTO) 1.1 10^3/uL (0.0-1.0); MONOCYTES % (AUTO) 7.4 %; NEUTROPHILS # (AUTO) 12.2 10^3/uL (1.5-6.6); NEUTROPHILS % (AUTO) 83.7 %; PLT - PLATELET COUNT 288 10^3/uL (130-450); RED BLOOD COUNT 3.37 10^6/uL (4.20-5.40); RED CELL DISTRIBUTION WIDTH 13.2 % (12.0-15.0); WHITE BLOOD COUNT 14.6 x10^3/uL (4.8-10.8)
[2019-08-21 05:03] LABS: CREATININE 2.5 mg/dL (0.4-1.0); MAGNESIUM 1.5 mg/dL (1.7-2.8); PHOSPHORUS 2.8 mg/dL (2.5-4.6)
[2019-08-21 05:05] LABS: CALCIUM 13.4 mg/dL (8.5-10.3)
[2019-08-21] MEDS ORDERED: POTASSIUM CHLORIDE 20 MEQ TABLET PO ONE (07:45)
[2019-08-21] MEDS ORDERED: MAGNESIUM OXIDE 400 MG TABLET PO ONE (08:00)
[2019-08-21] MEDS: POLYETHYLENE GLYCOL 3350 17 GM PACKET PO SCH (08:08)
[2019-08-21] MEDS: FAMOTIDINE 20 MG/2 ML VIAL IVP SCH ×2 (08:09→21:39)
[2019-08-21] MEDS: amLODIPine 5 MG TABLET PO SCH (08:11)
--- NOTE | 2019-08-21 09:03 | PROVIDER PROGRESS NOTE ---
Subjective - Prog Note Date Prog Note Date: 08/21/19 - Subjective Subjective: She is more awake this morning and speaking with the staff. She does not answer questions appropriately. Denies having pain. She is able to tolerate oral intake. Current Medications - Current Medications Current Medications: Active Medications Acetaminophen (Tylenol) 650 mg PO Q4HR PRN PRN Reason: Pain 1 to 4 Amlodipine Besylate (Norvasc) 10 mg PO DAILY [facility] Last Admin: 08/21/19 08:11 Dose: 10 mg Famotidine (Pepcid) 20 mg IVP BID [facility] Last Admin: 08/21/19 08:09 Dose: 20 mg Haloperidol (Haldol Inj) 1 mg IVP Q6H PRN PRN Reason: Agitation Lactated Ringer's (Lr) 1,000 mls @ 300 mls/hr IV .Q3H20M [facility] Last Admin: 08/21/19 08:07 Dose: 300 mls/hr Ondansetron HCl (Zofran Inj) 4 mg IVP Q6HR PRN PRN Reason: Nausea / Vomiting Ondansetron HCl (Zofran Odt) 4 mg TL Q6HR PRN PRN Reason: Nausea / Vomiting Oxycodone HCl (Roxicodone) 5 mg PO Q4HR PRN PRN Reason: Pain 5 to 7 Polyethylene Glycol (Miralax) 17 gm PO DAILY [facility] Last Admin: 08/21/19 08:08 Dose: 17 gm Sodium Chloride (Normal Saline Flush 0.9%) 10 ml IVP PRN PRN PRN Reason: NEEDED PER PROVIDER ORDERS Last Admin: 08/20/19 20:58 Dose: 20 ml Sodium Chloride (Normal Saline Flush 0.9%) 10 ml IVP 0100,0900,1700 [facility] Last Admin: 08/21/19 01:25 Dose: 10 ml No Known Home Medications 08/20/19 Objective - Vital Signs/Intake & Output Reviewed Vital Signs: Yes Vital Signs: Vital Signs x48h Temp Pulse Resp BP Pulse Ox 08/21/19 07:37 36.3 C L 80 17 122/92 H 93 08/21/19 02:21 36.3 C L 90 24 160/99 H 99 Intake & Output: Intake & Output 08/18/19 08/19/19 08/20/19 08/21/19 23:59 23:59 23:59 23:59 Intake Total 1510 7549 2480 Output Total 0 1500 150 Balance 1510 6049 2330 - Objective General Appearance: positive: No acute distress, Alert Eyes Bilateral: positive: Normal inspection ENT: positive: ENT inspection nml Neck: positive: Nml inspection Respiratory: positive: No respiratory distress. negative: Wheezes, Rales, Rhonchi Cardiovascular: positive: Regular rate & rhythm, No murmur. negative: Tachycardia, Bradycardia Abdomen: positive: Non-tender, No distention. negative: Tenderness Skin: positive: No rash, Warm, Dry Extremities: positive: Full ROM, No pedal edema Neurologic/Psychiatric: positive: Disoriented to place, Disoriented to time, Other (No focal motor deficits.). negative: Disoriented to person - Lab Results Fish Bones: 08/21/19 04:45 08/21/19 04:45 Other Labs: Lab Results x24hrs 08/21/19 08/21/19 08/20/19 Range/Units 04:45 04:45 16:10 WBC 14.6 H (4.8-10.8) x10^3/uL RBC 3.37 L (4.20-5.40) 10^6/uL Hgb 10.1 L (12.0-16.0) g/dL Hct 31.9 L (37.0-47.0) % MCV 94.7 (81.0-99.0) fL MCH 30.0 (27.0-31.0) pg MCHC 31.7 L (32.0-36.0) g/dL RDW 13.2 (12.0-15.0) % Plt Count 288 (130-450) 10^3/uL MPV 9.4 (7.9-10.8) fL Neut # (Auto) 12.2 H (1.5-6.6) 10^3/uL Lymph # (Auto) 1.0 L (1.5-3.5) 10^3/uL [place] # (Auto) 1.1 H (0.0-1.0) 10^3/uL Eos # (Auto) 0.1 (0.0-0.7) 10^3/uL Baso # (Auto) 0.1 (0.0-0.1) 10^3/uL Absolute Nucleated RBC 0.00 x10^3/uL Nucleated RBC % 0.0 /100WBC Sodium 145 143 (135-145) mmol/L Potassium 3.4 L 3.7 (3.5-5.0) mmol/L Chloride 117 H 116 H (101-111) mmol/L Carbon Dioxide 22 18 L (21-32) mmol/L Anion Gap 6.0 9.0 (6-13) BUN 44 H 51 H (6-20) mg/dL Creatinine 2.5 H 2.8 H (0.4-1.0) mg/dL Estimated GFR (MDRD) 18 L 16 L (>89) Glucose 111 H 130 H (70-100) mg/dL Calcium 13.4 H* 13.9 H* (8.5-10.3) mg/dL Phosphorus 2.8 (2.5-4.6) mg/dL Magnesium 1.5 L (1.7-2.8) mg/dL ABX Reporting Has patient been on IV antibiotics over the past 48 hours?: No Assessment/Plan - Problem List (1) Acute metabolic encephalopathy Impression: Her mentation continues to improve. She is more awake and is able to speak in short sentences. She still remains lethargic at times. This was likely secondary to her hypercalcemia. We will continue with IV hydration and treat the underlying cause. (2) Hypercalcemia Impression: This is secondary to hyperparathyroidism. Calcium was initially elevated at greater than 16. This continues to decrease with IV fluids and is now just above 13.She received denosumab and IV hydration. Calcitonin was not available until the . As she is improving, will hold off on administering calcitonin. We will continue with IV hydration at the 100 cc an hour. Will consider IV diuresis if she becomes edematous but at this time she appears euvolemic. (3) Hyperparathyroidism Impression: She has declined surgery in the past. Her PTH is greater than 3000. Will need to discuss with the family and the patient once her mental status improves if she would be agreeable to surgery. We will discuss with endocrinology prior to discharge regarding appropriate medical therapy on discharge if she were to decline surgery. (4) Acute worsening of stage 3 chronic kidney disease Impression: She has acute kidney injury on chronic kidney disease secondary to her hypercalcemia and dehydration. Her renal function continues to improve with IV hydration. We will continue to hold her angiotensin receptor raghu given the acute kidney injury. Continue to monitor renal function and urine output. (5) Benign essential HTN Impression: She has been hypertensive at times but this morning she is normotensive. We will continue her Norvasc at this time. We will hold her losartan given the acute kidney injury. (6) Hypokalemia Impression: We will continue oral supplementation. (7) Hypomagnesemia Impression: We will continue oral supplementation.
[2019-08-21] MEDS: ACETAMINOPHEN 325 MG TABLET PO PRN (15:44)
[2019-08-21 17:24] LABS: CREATININE 2.3 mg/dL (0.4-1.0)
[2019-08-21 17:26] LABS: CALCIUM 12.4 mg/dL (8.5-10.3)
[2019-08-22] MEDS: LACTATED RINGERS 1,000 ML IV SCH ×5 (01:11→20:34)
[2019-08-22] MEDS: SODIUM CHLORIDE FLUSH 0.9% 10 ML SYRINGE IVP SCH ×4 (04:16→23:41)
[2019-08-22 05:24] LABS: BASOPHILS # (AUTO) 0.1 10^3/uL (0.0-0.1); BASOPHILS % (AUTO) 0.5 %; EOSINOPHILS # (AUTO) 0.1 10^3/uL (0.0-0.7); EOSINOPHILS % (AUTO) 0.8 %; HGB - HEMOGLOBIN 9.9 g/dL (12.0-16.0); LYMPHOCYTES # (AUTO) 0.9 10^3/uL (1.5-3.5); LYMPHOCYTES % (AUTO) 6.7 %; MEAN CORPUSCULAR HEMOGLOBIN 29.5 pg (27.0-31.0); MEAN CORPUSCULAR HGB CONC 31.1 g/dL (32.0-36.0); MEAN CORPUSCULAR VOLUME 94.6 fL (81.0-99.0); MEAN PLATELET VOLUME 9.6 fL (7.9-10.8); MONOCYTES # (AUTO) 0.7 10^3/uL (0.0-1.0); MONOCYTES % (AUTO) 5.3 %; NEUTROPHILS % (AUTO) 85.9 %; PLT - PLATELET COUNT 257 10^3/uL (130-450); RED BLOOD COUNT 3.36 10^6/uL (4.20-5.40); RED CELL DISTRIBUTION WIDTH 13.2 % (12.0-15.0); WHITE BLOOD COUNT 12.8 x10^3/uL (4.8-10.8)
[2019-08-22 05:37] LABS: CALCIUM 11.8 mg/dL (8.5-10.3); CREATININE 2.1 mg/dL (0.4-1.0); MAGNESIUM 1.2 mg/dL (1.7-2.8); PHOSPHORUS 2.2 mg/dL (2.5-4.6)
[2019-08-22] MEDS: FAMOTIDINE 20 MG/2 ML VIAL IVP SCH (09:18)
[2019-08-22] MEDS: amLODIPine 5 MG TABLET PO SCH (09:48)
[2019-08-22] MEDS: POLYETHYLENE GLYCOL 3350 17 GM PACKET PO SCH (09:49)
[2019-08-22] MEDS: SENNA 8.6 MG TABLET PO SCH (09:49)
[2019-08-22] MEDS ORDERED: MAGNESIUM SULFATE 2 GRAM 2 GM/50 ML BAG IV ONE (10:05)
[2019-08-22] MEDS ORDERED: POTASSIUM CHLORIDE 20 MEQ TABLET PO ONE (10:15)
[2019-08-22] MEDS ORDERED: NEUTRA-PHOS 250 MG TABLET PO SCH (11:00)
[2019-08-22] MEDS ORDERED: MAGNESIUM OXIDE 400 MG TABLET PO SCH (11:00)
[2019-08-22] MEDS ORDERED: MIN OIL/DIMETHICON/COCONUT OIL 92 GM TUBE TOP PRN (16:31)
--- NOTE | 2019-08-22 16:36 | PROVIDER PROGRESS NOTE ---
Subjective - Prog Note Date Prog Note Date: 08/22/19 - Subjective Subjective: She is more awake and was able to work with physical therapy a little this morning. She did recognize one of her caregivers earlier but later on did not recognize her. She reports no pain. She does not know where she ids. Current Medications - Current Medications Current Medications: Active Medications Acetaminophen (Tylenol) 650 mg PO Q4HR PRN PRN Reason: Pain 1 to 4 Last Admin: 08/21/19 15:44 Dose: 650 mg Amlodipine Besylate (Norvasc) 10 mg PO DAILY [facility] Last Admin: 08/22/19 09:48 Dose: Not Given Famotidine (Pepcid) 20 mg IVP DAILY [facility] Last Admin: 08/22/19 09:18 Dose: 20 mg Haloperidol (Haldol Inj) 1 mg IVP Q6H PRN PRN Reason: Agitation Lactated Ringer's (Lr) 1,000 mls @ 150 mls/hr IV .Q6H40M [facility] Last Admin: 08/22/19 11:01 Dose: 150 mls/hr Magnesium Oxide (Mag Ox) 400 mg PO DAILYWM [facility] Last Admin: 08/22/19 14:15 Dose: Not Given Mineral Oil (Cavilon) 1 applic TOP PRN PRN PRN Reason: Skin Care Ondansetron HCl (Zofran Inj) 4 mg IVP Q6HR PRN PRN Reason: Nausea / Vomiting Ondansetron HCl (Zofran Odt) 4 mg TL Q6HR PRN PRN Reason: Nausea / Vomiting Oxycodone HCl (Roxicodone) 5 mg PO Q4HR PRN PRN Reason: Pain 5 to 7 Last Admin: 08/21/19 16:56 Dose: 5 mg Polyethylene Glycol (Miralax) 17 gm PO DAILY [facility] Last Admin: 08/22/19 09:49 Dose: Not Given Senna (Senokot) 8.6 - 17.2 mg PO DAILY [facility] Last Admin: 08/22/19 09:49 Dose: Not Given Sodium Chloride (Normal Saline Flush 0.9%) 10 ml IVP PRN PRN PRN Reason: NEEDED PER PROVIDER ORDERS Last Admin: 08/20/19 20:58 Dose: 20 ml Sodium Chloride (Normal Saline Flush 0.9%) 10 ml IVP 0100,0900,1700 [facility] Last Admin: 08/22/19 09:18 Dose: 10 ml No Known Home Medications 08/20/19 Objective - Vital Signs/Intake & Output Reviewed Vital Signs: Yes Intake & Output: Intake & Output 08/19/19 08/20/19 08/21/19 08/22/19 23:59 23:59 23:59 23:59 Intake Total 1510 7549 6495 3880 Output Total 0 1500 150 Balance 1510 6049 6345 3880 - Objective General Appearance: positive: No acute distress, Alert ENT: positive: ENT inspection nml Neck: positive: Nml inspection Respiratory: positive: No respiratory distress. negative: Wheezes, Rales, Rhonchi Cardiovascular: positive: Regular rate & rhythm, No murmur. negative: Tachycardia, Bradycardia Abdomen: positive: Non-tender Skin: positive: No rash, Warm, Dry Extremities: positive: No pedal edema Neurologic/Psychiatric: positive: Disoriented to place, Disoriented to time, Other (No focal motor deficits.). negative: Disoriented to person - Lab Results Fish Bones: 08/22/19 04:45 08/22/19 04:45 Other Labs: Lab Results x24hrs 08/22/19 08/22/19 08/21/19 Range/Units 04:45 04:45 17:02 WBC 12.8 H (4.8-10.8) x10^3/uL RBC 3.36 L (4.20-5.40) 10^6/uL Hgb 9.9 L (12.0-16.0) g/dL Hct 31.8 L (37.0-47.0) % MCV 94.6 (81.0-99.0) fL MCH 29.5 (27.0-31.0) pg MCHC 31.1 L (32.0-36.0) g/dL RDW 13.2 (12.0-15.0) % Plt Count 257 (130-450) 10^3/uL MPV 9.6 (7.9-10.8) fL Neut # (Auto) 11.0 H (1.5-6.6) 10^3/uL Lymph # (Auto) 0.9 L (1.5-3.5) 10^3/uL [place] # (Auto) 0.7 (0.0-1.0) 10^3/uL Eos # (Auto) 0.1 (0.0-0.7) 10^3/uL Baso # (Auto) 0.1 (0.0-0.1) 10^3/uL Absolute Nucleated RBC 0.00 x10^3/uL Nucleated RBC % 0.0 /100WBC Sodium 145 142 (135-145) mmol/L Potassium 3.4 L 3.3 L (3.5-5.0) mmol/L Chloride 118 H 116 H (101-111) mmol/L Carbon Dioxide 21 20 L (21-32) mmol/L Anion Gap 6.0 6.0 (6-13) BUN 29 H 35 H (6-20) mg/dL Creatinine 2.1 H 2.3 H (0.4-1.0) mg/dL Estimated GFR (MDRD) 23 L 20 L (>89) Glucose 91 100 (70-100) mg/dL Calcium 11.8 H 12.4 H* (8.5-10.3) mg/dL Phosphorus 2.2 L (2.5-4.6) mg/dL Magnesium 1.2 L (1.7-2.8) mg/dL ABX Reporting Has patient been on IV antibiotics over the past 48 hours?: No Assessment/Plan - Problem List (1) Acute metabolic encephalopathy Impression: She is more awake and alert but remains disoriented. This should continue to improve as we treat her hypercalcemia. (2) Hypercalcemia Impression: This is secondary to hyperparathyroidism. Her calcium continues to improve and is now less than 12 but still remains elevated and she still has symptoms given her mental status has not returned to baseline. We will decrease the rate of her IV fluids but continue them. Continue to monitor her calcium. She appears euvolemic and therefore we will hold off on diuresis. (3) Hyperparathyroidism Impression: He has declined surgery in the past and her PTH is greater than 3000. We will need to discuss with endocrinology prior to discharge regarding appropriate medical therapy to prevent recurrence of her hypercalcemia. (4) Acute worsening of stage 3 chronic kidney disease Impression: Her acute kidney injury secondary to hypercalcemia and dehydration. Her renal function continues to improve with IV fluids. Continue to monitor renal function and urine output. (5) Benign essential HTN Impression: Her blood pressure has been controlled this morning. Continue amlodipine and hold losartan given her acute kidney injury. (6) Hypokalemia Impression: Continue to replace orally. (7) Hypomagnesemia Impression: Continue to replace orally.
[2019-08-22 18:31] LABS: CALCIUM 11.4 mg/dL (8.5-10.3); CREATININE 2.2 mg/dL (0.4-1.0)
[2019-08-22] MEDS: SODIUM CHLORIDE FLUSH 0.9% 10 ML SYRINGE IVP PRN (19:35)
[2019-08-22] MEDS ORDERED: hydrALAZINE INJ 20 MG/ML VIAL IVP ONE (19:42)
[2019-08-23] MEDS: LABETALOL 20 MG/4 ML SYRINGE IVP PRN ×3 (00:17→16:03)
[2019-08-23] MEDS: SODIUM CHLORIDE FLUSH 0.9% 10 ML SYRINGE IVP SCH ×2 (00:17→05:09)
[2019-08-23] MEDS: LACTATED RINGERS 1,000 ML IV SCH (02:46)
[2019-08-23 05:27] LABS: BASOPHILS # (AUTO) 0.1 10^3/uL (0.0-0.1); BASOPHILS % (AUTO) 0.3 %; EOSINOPHILS % (AUTO) 0.1 %; HGB - HEMOGLOBIN 11.1 g/dL (12.0-16.0); LYMPHOCYTES # (AUTO) 0.7 10^3/uL (1.5-3.5); LYMPHOCYTES % (AUTO) 4.6 %; MEAN CORPUSCULAR HEMOGLOBIN 29.5 pg (27.0-31.0); MEAN CORPUSCULAR HGB CONC 31.3 g/dL (32.0-36.0); MEAN CORPUSCULAR VOLUME 94.4 fL (81.0-99.0); MEAN PLATELET VOLUME 9.3 fL (7.9-10.8); MONOCYTES # (AUTO) 0.5 10^3/uL (0.0-1.0); MONOCYTES % (AUTO) 3.6 %; NEUTROPHILS # (AUTO) 13.1 10^3/uL (1.5-6.6); NEUTROPHILS % (AUTO) 90.6 %; PLT - PLATELET COUNT 274 10^3/uL (130-450); RED BLOOD COUNT 3.76 10^6/uL (4.20-5.40); RED CELL DISTRIBUTION WIDTH 13.3 % (12.0-15.0); WHITE BLOOD COUNT 14.4 x10^3/uL (4.8-10.8)
[2019-08-23 05:34] LABS: CALCIUM 10.7 mg/dL (8.5-10.3); CREATININE 2.2 mg/dL (0.4-1.0)
[2019-08-23] MEDS: SENNA 8.6 MG TABLET PO SCH (09:49)
[2019-08-23] MEDS: POLYETHYLENE GLYCOL 3350 17 GM PACKET PO SCH (09:49)
[2019-08-23] MEDS ORDERED: MAGNESIUM SULFATE 2 GRAM 2 GM/50 ML BAG IV ONE (09:59)
[2019-08-23] MEDS ORDERED: DEXTROSE 5%-0.9% NACL 1,000 ML IV SCH (10:00)
[2019-08-23] MEDS ORDERED: cloNIDine 0.1 MG PATCH TOP SCH (10:00)
--- NOTE | 2019-08-23 10:06 | PROVIDER PROGRESS NOTE ---
Assessment/Plan - Problem List (1) Acute metabolic encephalopathy Assessment/Plan: She is not lethargic as at admission, but is still confused. She did start to participate with PT yesterday. She refuses to eat and declines certain med. Continue to treat hypercalcemia, uremia and HTN, and assess for improving mental status. (2) Hypercalcemia Assessment/Plan: Continue management with iv fluids. Follow serum Ca daily. (3) Hyperparathyroidism Assessment/Plan: She has not wanted parathyroid surgery for many years. She did get 1 dose of Prolia here. (4) HTN (hypertension) Assessment/Plan: BP poorly controlled here (and prior to admission as well, due to medication non-compliance). Yesterday, she refused to take her po Amlodipine, got the prn Hydralazine iv and prn Labetolol iv Will change Amlodipine to Clonidine patch. (5) ARF (acute renal failure) Qualifiers: Acute renal failure type: unspecified Qualified Code(s): N17.9 - Acute kidney failure, unspecified Assessment/Plan: Minimal further improvement in creat, which was 3.3 at admission and has been in 2.2 range, on iv fluids, for 3 days. Will change to iv NS Follow BMP daily. (6) Hypomagnesemia Assessment/Plan: Here, she refused to take her po Amlodipine, Potassium and Mag doses. Will change oral K and Mg replacement to iv runners. (7) Hypokalemia Assessment/Plan: Yesterday, she refused to take her po Amlodipine, Potassium and Mag doses. Will change oral K and Mg replacement to iv runners. (8) Non compliance with medical treatment Assessment/Plan: As per the details in Advanced Care Plan, the patient has been non-compliant with medical management for years. Here, she refused to take her po Amlodipine, Potassium and Mag doses. Will change Amlodipine to Clonidine patch. Will change oral K and Mg replacement to iv runners. (9) Anorexia Assessment/Plan: In yesterday' notes by MACHINE FINISHER: "When daughter and caregiver were out of the room, patient stated to this MACHINE FINISHER that she wanted to and she wished she was and when I asked if that was why she was not eating, patient replied, "yes, so i can ." RN in charge of patient was notified." (10) Severe protein-calorie malnutrition Assessment/Plan: She has significant muscle wasting, and <50% nutritional intake and a BMI of 18.1 and 16% of usual body weight lost was this past year. (11) Asthma Qualifiers: Asthma severity: unspecified severity Assessment/Plan: No asthmatic exacerbation currently, and she was not taking her QVar at home - Current Meds Current Meds: Current Medications Generic Name Dose Route Start Last Admin Trade Name Freq PRN Reason Stop Dose Admin Acetaminophen 650 mg 08/19/19 19:42 08/21/19 15:44 Tylenol PO 650 mg Q4HR PRN Administration Pain 1 to 4 Famotidine 20 mg 08/22/19 09:00 08/22/19 09:18 Pepcid IVP 20 mg DAILY [facility] Administration Labetalol HCl 10 mg 08/22/19 22:47 08/23/19 05:09 Trandate Syringe IVP 10 mg Q4H PRN Administration PER PHYSICIAN ORDER Oxycodone HCl 5 mg 08/19/19 19:42 08/21/19 16:56 Roxicodone PO 5 mg Q4HR PRN Administration Pain 5 to 7 Polyethylene Glycol 17 gm 08/21/19 09:00 08/23/19 09:49 Miralax PO Not Given DAILY [facility] Senna 8.6 - 17.2 mg 08/22/19 09:00 08/23/19 09:49 Senokot PO Not Given DAILY [facility] Sodium Chloride 10 ml 08/19/19 19:42 08/22/19 19:35 Normal Saline Flush 0.9% IVP 10 ml PRN PRN Administration NEEDED PER PROVIDER ORDERS Sodium Chloride 10 ml 08/20/19 01:00 08/23/19 05:09 Normal Saline Flush 0.9% IVP 10 ml 0100,0900,1700 [facility] Administration - Lab Result Fish Bone Diagrams: 08/23/19 04:55 08/23/19 05:00 - Additional Planning My Orders: My Active Orders 08/23/19 05:00 MAGNESIUM [CHEM] Routine 08/23/19 09:59 MAGNESIUM SULFATE 2 GRAMS IV X1 Magnesium Sulfate 2 Gram [Magnesium Sulfate] 2 gm in 50 ml IV ONCE 08/23/19 10:00 D5NS @ 125 mls/hr Dextrose 5%-0.9% NaCl [D5ns] 1,000 ml IV 125 mls/hr cloNIDine 0.1 MG PATCH [Yuodocmy-Mat-7] 1 patch TOP Q7D 08/24/19 05:00 BMP - BASIC METABOLIC PANEL [CHEM] DAILYLAB CBC - COMP BLD CT W/AUTO DIFF [HEME] DAILYLAB 08/25/19 05:00 BMP - BASIC METABOLIC PANEL [CHEM] DAILYLAB CBC - COMP BLD CT W/AUTO DIFF [HEME] DAILYLAB Subjective - Subjective Patient Reports: Resting Comfortably, Other (Answers with 1-2 word answers) Nursing Reports: Confused Objective Vital Signs: Vital Signs - 24 hr 08/22/19 08/22/19 08/22/19 17:00 17:29 20:35 Temperature 36.6 C Heart Rate [ 81 Brachial] Respiratory 22 Rate Blood Pressure 183/97 H Blood Pressure 198/113 H [Left Brachial artery] Blood Pressure 190/112 H [Right Brachial artery] O2 Saturation 98 08/22/19 08/22/19 08/22/19 20:45 20:50 20:55 Temperature Heart Rate [ 89 122 H 124 H Brachial] Respiratory Rate Blood Pressure Blood Pressure 175/79 H 203/114 H 179/116 H [Left Brachial artery] Blood Pressure [Right Brachial artery] O2 Saturation 08/22/19 08/22/19 08/22/19 21:10 21:25 21:40 Temperature Heart Rate [ 123 H 118 H 108 H Brachial] Respiratory Rate Blood Pressure Blood Pressure 189/100 H 166/93 H 171/98 H [Left Brachial artery] Blood Pressure [Right Brachial artery] O2 Saturation 08/22/19 08/23/19 08/23/19 23:55 00:24 00:29 Temperature 36.4 C L Heart Rate [ 115 H 85 85 Brachial] Respiratory 18 16 Rate Blood Pressure Blood Pressure 161/117 H 122/72 168/88 H [Left Brachial artery] Blood Pressure [Right Brachial artery] O2 Saturation 98 08/23/19 08/23/19 08/23/19 00:34 00:45 01:00 Temperature Heart Rate [ 94 94 97 Brachial] Respiratory 18 18 18 Rate Blood Pressure Blood Pressure 195/113 H 191/116 H 180/100 H [Left Brachial artery] Blood Pressure [Right Brachial artery] O2 Saturation 08/23/19 08/23/19 08/23/19 01:15 02:43 05:08 Temperature Heart Rate [ 98 105 H 110 H Brachial] Respiratory 18 Rate Blood Pressure Blood Pressure 199/111 H 179/102 H 177/110 H [Left Brachial artery] Blood Pressure [Right Brachial artery] O2 Saturation 08/23/19 08/23/19 08/23/19 05:14 05:19 05:34 Temperature Heart Rate [ 96 95 93 Brachial] Respiratory Rate Blood Pressure Blood Pressure 149/85 H 174/91 H 163/88 H [Left Brachial artery] Blood Pressure [Right Brachial artery] O2 Saturation 08/23/19 08/23/19 08/23/19 05:49 06:05 08:00 Temperature 36.7 C Heart Rate [ 103 H 98 110 H Brachial] Respiratory 20 Rate Blood Pressure Blood Pressure 183/79 H 181/82 H 182/109 H [Left Brachial artery] Blood Pressure [Right Brachial artery] O2 Saturation 99 Oxygen O2 Source Room air I&O (Last 24 Hrs): Intake and Output Totals x24h 08/21/19 08/22/19 08/23/19 23:59 23:59 23:59 Intake Total 6495 4880 1930 Output Total 150 3 Balance 6345 4880 1927 General: No acute distress HEENT: Atraumatic, Mucous membr. moist/pink Neck: Supple Neuro: Disoriented, Non Focal Cardiovascular: Regular rate, No murmurs Respiratory: No respiratory distress, Breath sounds nml Abdomen: Soft Extremities: No edema - Results Results: Laboratory Results WBC 14.4 x10^3/uL (4.8-10.8) H 08/23/19 04:55 RBC 3.76 10^6/uL (4.20-5.40) L 08/23/19 04:55 Hgb 11.1 g/dL (12.0-16.0) L 08/23/19 04:55 Hct 35.5 % (37.0-47.0) L 08/23/19 04:55 MCV 94.4 fL (81.0-99.0) 08/23/19 04:55 MCH 29.5 pg (27.0-31.0) 08/23/19 04:55 MCHC 31.3 g/dL (32.0-36.0) L 08/23/19 04:55 RDW 13.3 % (12.0-15.0) 08/23/19 04:55 Plt Count 274 10^3/uL (130-450) 08/23/19 04:55 MPV 9.3 fL (7.9-10.8) 08/23/19 04:55 Neut # (Auto) 13.1 10^3/uL (1.5-6.6) H 08/23/19 04:55 Lymph # (Auto) 0.7 10^3/uL (1.5-3.5) L 08/23/19 04:55 [place] # (Auto) 0.5 10^3/uL (0.0-1.0) 08/23/19 04:55 Eos # (Auto) 0.0 10^3/uL (0.0-0.7) 08/23/19 04:55 Baso # (Auto) 0.1 10^3/uL (0.0-0.1) 08/23/19 04:55 Absolute Nucleated RBC 0.00 x10^3/uL 08/23/19 04:55 Nucleated RBC % 0.0 /100WBC 08/23/19 04:55 Sodium 143 mmol/L (135-145) 08/23/19 05:00 Potassium 3.3 mmol/L (3.5-5.0) L 08/23/19 05:00 Chloride 115 mmol/L (101-111) H 08/23/19 05:00 Carbon Dioxide 19 mmol/L (21-32) L 08/23/19 05:00 Anion Gap 9.0 (6-13) 08/23/19 05:00 BUN 29 mg/dL (6-20) H 08/23/19 05:00 Creatinine 2.2 mg/dL (0.4-1.0) H 08/23/19 05:00 Estimated GFR (MDRD) 21 (>89) L 08/23/19 05:00 Glucose 98 mg/dL (70-100) 08/23/19 05:00 Calcium 10.7 mg/dL (8.5-10.3) H 08/23/19 05:00 Phosphorus 2.2 mg/dL (2.5-4.6) L 08/22/19 04:45 Magnesium 1.2 mg/dL (1.7-2.8) L 08/22/19 04:45 Total Bilirubin 1.1 mg/dL (0.2-1.0) H 08/19/19 16:38 AST 70 IU/L (10-42) H 08/19/19 16:38 ALT 22 IU/L (10-60) 08/19/19 16:38 Alkaline Phosphatase 194 IU/L (42-121) H 08/19/19 16:38 Total Protein 8.0 g/dL (6.7-8.2) 08/19/19 16:38 Albumin 3.8 g/dL (3.2-5.5) 08/19/19 16:38 Globulin 4.2 g/dL (2.1-4.2) 08/19/19 16:38 Albumin/Globulin Ratio 0.9 (1.0-2.2) L 08/19/19 16:38 Lipase 34 U/L (22-51) 08/19/19 16:38 PTH Intact 3077 pg/mL (12-88) H 08/19/19 16:38 Urine Color YELLOW 08/19/19 18:30 Urine Clarity CLEAR (CLEAR) 08/19/19 18:30 Urine pH 6.0 PH (5.0-7.5) 08/19/19 18:30 Ur Specific [place] 1.020 (1.002-1.030) 08/19/19 18:30 Urine Protein 100 mg/dL (NEGATIVE) H 08/19/19 18:30 Urine Glucose (UA) NEGATIVE mg/dL (NEGATIVE) 08/19/19 18:30 Urine Ketones TRACE mg/dL (NEGATIVE) 08/19/19 18:30 Urine Occult Blood LARGE (NEGATIVE) H 08/19/19 18:30 Urine Nitrite NEGATIVE (NEGATIVE) 08/19/19 18:30 Urine Bilirubin NEGATIVE (NEGATIVE) 08/19/19 18:30 Urine Urobilinogen 0.2 (NORMAL) E.U./dL (NORMAL) 08/19/19 18:30 Ur Leukocyte Esterase NEGATIVE (NEGATIVE) 08/19/19 18:30 Urine RBC None Seen /HPF (0-5) 08/19/19 18:30 Urine WBC 0-3 /HPF (0-5) 08/19/19 18:30 Ur Squamous Epith Cells NONE SEEN (<= Few) 08/19/19 18:30 Urine Bacteria None Seen /HPF (None Seen) 08/19/19 18:30 Ur Microscopic Review INDICATED 08/19/19 18:30 Urine Culture Comments NOT INDICATED 08/19/19 18:30
[2019-08-23] MEDS: FAMOTIDINE 20 MG/2 ML VIAL IVP SCH (10:56)
[2019-08-23] MEDS ORDERED: LEVALBUTEROL 1.25 MG/3 ML NEB INH STA (16:06)
[2019-08-23] MEDS: FUROSEMIDE 20 MG/2 ML VIAL IVP SCH (16:20)
--- NOTE | 2019-08-23 16:48 | XRAY Report ---
Reason: Tachypnea, HTN Procedure Date: 08/23/2019 Accession Number: [id number] / [id number] Procedure: XR - Chest 1 View X-Ray CPT Code: 98812 Final Report FULL RESULT: EXAM: CHEST RADIOGRAPHY EXAM DATE: 08/23/2019 04:21 PM. CLINICAL HISTORY: Tachypnea, HTN. COMPARISON: CHEST 2 VIEW PA/LAT 11/25/2016 6:14 AM. TECHNIQUE: 1 view. FINDINGS: Lungs/Pleura: Increased lung markings. Heterogeneous right mid and lower lung opacity. Blunting right costophrenic angle. Mediastinum: Stable Other: Decreased bone mineralization. Suspect rotator cuff tears. IMPRESSION: 1. Heterogeneous right lung base opacities. 2. Small right pleural effusion extends into the minor fissure. 3. Suspect airways disease RADIA
[2019-08-23] MEDS ORDERED: PIPERACILLIN/TAZOBACTAM 3.375 GM in SODIUM CHLORIDE 0.9% MINIBAG 100 ML IV SCH (19:00)
[2019-08-23] MEDS: cefTRIAXone 1 GM in SODIUM CHLORIDE 0.9% MINIBAG 100 ML IV SCH (19:51)
[2019-08-23] MEDS: metroNIDAZOLE 500 MG/100 ML 500 MG/100 ML BAG IV SCH (20:38)
[2019-08-24] MEDS: DEXTROSE 5%-0.9% NACL 1,000 ML IV SCH ×2 (00:36→21:56)
[2019-08-24] MEDS: SODIUM CHLORIDE FLUSH 0.9% 10 ML SYRINGE IVP SCH ×4 (00:36→06:54)
[2019-08-24] MEDS: LABETALOL 20 MG/4 ML SYRINGE IVP PRN ×3 (00:36→06:53)
[2019-08-24] MEDS ORDERED: LABETALOL 20 MG/4 ML SYRINGE IVP STA (03:33)
[2019-08-24 05:22] LABS: BASOPHILS % (AUTO) 0.2 %; HGB - HEMOGLOBIN 10.8 g/dL (12.0-16.0); LYMPHOCYTES # (AUTO) 0.5 10^3/uL (1.5-3.5); LYMPHOCYTES % (AUTO) 3.1 %; MEAN CORPUSCULAR HEMOGLOBIN 30.3 pg (27.0-31.0); MEAN CORPUSCULAR HGB CONC 31.2 g/dL (32.0-36.0); MEAN CORPUSCULAR VOLUME 97.2 fL (81.0-99.0); MEAN PLATELET VOLUME 9.1 fL (7.9-10.8); MONOCYTES # (AUTO) 0.6 10^3/uL (0.0-1.0); MONOCYTES % (AUTO) 3.9 %; NEUTROPHILS # (AUTO) 13.6 10^3/uL (1.5-6.6); PLT - PLATELET COUNT 230 10^3/uL (130-450); RED BLOOD COUNT 3.56 10^6/uL (4.20-5.40); RED CELL DISTRIBUTION WIDTH 13.7 % (12.0-15.0); WHITE BLOOD COUNT 14.8 x10^3/uL (4.8-10.8)
[2019-08-24 05:31] LABS: CALCIUM 9.7 mg/dL (8.5-10.3); CREATININE 2.4 mg/dL (0.4-1.0)
[2019-08-24] MEDS: metroNIDAZOLE 500 MG/100 ML 500 MG/100 ML BAG IV SCH ×3 (06:22→22:23)
[2019-08-24] MEDS ORDERED: MAGNESIUM SULFATE 2 GRAM 2 GM/50 ML BAG IV ONE ×2 (07:30→14:00)
--- NOTE | 2019-08-24 07:37 | PROVIDER PROGRESS NOTE ---
Assessment/Plan - Problem List (1) HCAP (healthcare-associated pneumonia) Assessment/Plan: The CXR done last night when she was more tachypneic showed a R base infiltrate. She was started on iv Ceftriaxone and iv Flagyl. She refuses to swallow meds, thus will continue treatment with iv antibx. The hope is that she will be more alert and cooperative and swallow meds by tomorrow, since today is the first day of normal serum calcium (2) Acute metabolic encephalopathy Assessment/Plan: The Calcium is now in a normal range, and she was slightly more alert today when worked with PT, but is lethargic other times. I discussed with the daughter that if she remains obtunded, or not cooperative, we will have nothing else to offer her medically after the iv antibiotics and topical or iv BP meds, and that she would be a Hospice candidate or Pallitive Care candidate and transition to Hospice. The daughter understood and requested Palliative Care start to be involved. Will order Palliative Care consult. (3) Uncontrolled hypertension Assessment/Plan: Will increase the Clonidine patch fom 0.1 mg weekly to 0.2 mg weekly. Will start scheduled Lopressor IV. PRN iv Hydralazine and iv Labetolol continue. (4) ARF (acute renal failure) Qualifiers: Acute renal failure type: unspecified Qualified Code(s): N17.9 - Acute kidney failure, unspecified Assessment/Plan: She has not had improvement in creat of 2.2 despite 3 days of iv hydration. 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 Her meds and management will need renaly adjusted doses. (5) Hypercalcemia Assessment/Plan: Improved into a normal range. Decreasing fluid rate will start today. (6) Hyperparathyroidism Assessment/Plan: She did not want parathyroid surgery when it was offered to her years ago. The recurrence of hypercalcemia is very possible therefore, I discussed that with daughter. Will start with PAlliative [facility] consult and I feel she will need transition to Hospice. (7) Hypomagnesemia Assessment/Plan: Correct with Mag iv riders. Follow Mag daily (8) Hypokalemia Assessment/Plan: Correct with iv Potassium riders. Follow BMP daily. (9) Non compliance with medical treatment Assessment/Plan: As per Hx (10) Anorexia Assessment/Plan: Several days ago the pt told her [employer], that she does not want to eat because she does not want to live any longer (11) Severe protein-calorie malnutrition Assessment/Plan: As per Hx (12) Asthma Qualifiers: Asthma severity: unspecified severity Assessment/Plan: Nebs have been ordered prn - Current Meds Current Meds: Current Medications Generic Name Dose Route Start Last Admin Trade Name Freq PRN Reason Stop Dose Admin Acetaminophen 650 mg 08/19/19 19:42 08/21/19 15:44 Tylenol PO 650 mg Q4HR PRN Administration Pain 1 to 4 Clonidine HCl 1 patch 08/23/19 10:00 08/23/19 10:57 [id number]-[id number]-2 TOP 1 patch Q7D MARIBEL Administration Famotidine 20 mg 08/22/19 09:00 08/23/19 10:56 Pepcid IVP 20 mg DAILY MARIBEL Administration Furosemide 20 mg 08/23/19 16:05 08/23/19 16:20 Lasix Inj 20mg Vial IVP 20 mg DAILY MARIBEL Administration Dextrose/Sodium Chloride 1,000 mls @ 50 mls/hr 08/23/19 18:03 08/24/19 00:36 D5ns IV 50 mls/hr .Q20H MARIBEL Administration Ceftriaxone Sodium 1 gm/ 100 mls @ 200 mls/hr 08/23/19 19:00 08/23/19 20:21 Sodium Chloride IV Infused DAILY MARIBEL Infusion Metronidazole 500 mg in 100 mls @ 100 mls/hr 08/23/19 20:00 08/24/19 06:22 Flagyl 500 Mg/100 Ml IV 100 mls/hr Q8HR MARIBEL Administration Labetalol HCl 10 mg 08/22/19 22:47 08/24/19 06:53 Trandate Syringe IVP 10 mg Q4H PRN Administration PER PHYSICIAN ORDER Oxycodone HCl 5 mg 08/19/19 19:42 08/21/19 16:56 Roxicodone PO 5 mg Q4HR PRN Administration Pain 5 to 7 Polyethylene Glycol 17 gm 08/21/19 09:00 08/23/19 09:49 Miralax PO Not Given DAILY MARIBEL Senna 8.6 - 17.2 mg 08/22/19 09:00 08/23/19 09:49 Senokot PO Not Given DAILY MARIBEL Sodium Chloride 10 ml 08/19/19 19:42 08/22/19 19:35 Normal Saline Flush 0.9% IVP 10 ml PRN PRN Administration NEEDED PER PROVIDER ORDERS Sodium Chloride 10 ml 08/20/19 01:00 08/24/19 06:54 Normal Saline Flush 0.9% IVP 10 ml 0100,0900,1700 MARIBEL Administration - Lab Result Fish Bone Diagrams: 08/24/19 05:00 08/24/19 05:00 - Additional Planning My Orders: My Active Orders 08/23/19 10:00 cloNIDine 0.1 MG PATCH [Yuurlynv-Zuf-9] 1 patch TOP Q7D 08/23/19 16:05 FUROSEMIDE INJ 20mg VIAL [LASIX INJ 20mg VIAL] 20 mg IVP DAILY 08/23/19 16:06 Nebulizer/MDI Tx. [RC] .PRN Resp Teach Nebulizer/MDI [RC] .ONCE Levalbuterol [Xopenex] 1.25 mg INH Q4H PRN 08/24/19 07:30 MAGNESIUM SULFATE 2 GRAMS IV X1 Magnesium Sulfate 2 Gram [Magnesium Sulfate] 2 gm in 50 ml IV ONCE 08/24/19 08:00 Potassium Chloride/Water 10 mEq/100 mL q1h (Enter # of bags) Potassium Chlor 10 Meq/100 ml [Potassium Chloride] 10 meq in 100 ml IV Q1H 08/24/19 14:00 MAGNESIUM SULFATE 2 GRAMS IV X1 Magnesium Sulfate 2 Gram [Magnesium Sulfate] 2 gm in 50 ml IV ONCE 08/25/19 05:00 BMP - BASIC METABOLIC PANEL [CHEM] DAILYLAB CBC - COMP BLD CT W/AUTO DIFF [HEME] DAILYLAB Subjective - Subjective Patient Reports: Resting Comfortably Nursing Reports: Other (Slightly more alert and cooperative: was max assist but able to get OOB and pivot to chair) Objective Vital Signs: Vital Signs - 24 hr 08/23/19 08/23/19 08/23/19 08:00 15:46 16:00 Temperature 36.7 C 36.7 C Heart Rate Heart Rate [ 110 H 108 H 102 H Brachial] Respiratory 20 22 Rate Blood Pressure 182/109 H 193/104 H [Left Brachial artery] Blood Pressure 239/115 H [Right Brachial artery] O2 Saturation 99 93 92 08/23/19 08/23/19 08/23/19 16:17 16:31 17:42 Temperature Heart Rate 85 Heart Rate [ 83 90 Brachial] Respiratory 14 Rate Blood Pressure 191/93 H [Left Brachial artery] Blood Pressure 180/106 H 151/117 H [Right Brachial artery] O2 Saturation 08/24/19 08/24/19 08/24/19 00:20 00:43 00:45 Temperature 36.5 C Heart Rate Heart Rate [ 98 79 79 Brachial] Respiratory 16 Rate Blood Pressure 190/89 H 151/82 H 152/75 H [Left Brachial artery] Blood Pressure [Right Brachial artery] O2 Saturation 94 08/24/19 08/24/19 08/24/19 00:50 00:55 01:10 Temperature Heart Rate Heart Rate [ 88 83 83 Brachial] Respiratory Rate Blood Pressure 170/91 H 183/106 H 168/83 H [Left Brachial artery] Blood Pressure [Right Brachial artery] O2 Saturation 08/24/19 08/24/19 08/24/19 01:25 01:40 02:33 Temperature Heart Rate Heart Rate [ 89 87 96 Brachial] Respiratory Rate Blood Pressure 197/100 H 176/101 H 231/125 H [Left Brachial artery] Blood Pressure [Right Brachial artery] O2 Saturation 08/24/19 08/24/19 08/24/19 02:40 02:45 02:50 Temperature Heart Rate Heart Rate [ 92 91 79 Brachial] Respiratory Rate Blood Pressure 217/109 H 202/110 H 175/110 H [Left Brachial artery] Blood Pressure [Right Brachial artery] O2 Saturation 08/24/19 08/24/19 08/24/19 02:55 03:00 03:15 Temperature Heart Rate Heart Rate [ 80 80 80 Brachial] Respiratory Rate Blood Pressure 207/109 H 189/101 H 193/107 H [Left Brachial artery] Blood Pressure [Right Brachial artery] O2 Saturation 08/24/19 08/24/19 08/24/19 03:30 03:45 04:00 Temperature Heart Rate Heart Rate [ 86 83 75 Brachial] Respiratory Rate Blood Pressure 198/101 H 190/121 H 163/83 H [Left Brachial artery] Blood Pressure [Right Brachial artery] O2 Saturation 08/24/19 08/24/19 08/24/19 04:05 04:10 04:25 Temperature Heart Rate Heart Rate [ 76 75 74 Brachial] Respiratory Rate Blood Pressure 174/106 H 182/101 H 176/95 H [Left Brachial artery] Blood Pressure [Right Brachial artery] O2 Saturation 08/24/19 08/24/19 08/24/19 04:40 06:25 06:56 Temperature Heart Rate Heart Rate [ 77 81 78 Brachial] Respiratory Rate Blood Pressure 194/91 H 189/119 H 200/88 H [Left Brachial artery] Blood Pressure [Right Brachial artery] O2 Saturation 08/24/19 08/24/19 08/24/19 07:02 07:05 07:10 Temperature Heart Rate Heart Rate [ 78 74 75 Brachial] Respiratory Rate Blood Pressure 153/89 H 177/83 H 176/89 H [Left Brachial artery] Blood Pressure [Right Brachial artery] O2 Saturation 08/24/19 08/24/19 07:15 07:20 Temperature Heart Rate Heart Rate [ 76 75 Brachial] Respiratory Rate Blood Pressure 188/85 H 190/95 H [Left Brachial artery] Blood Pressure [Right Brachial artery] O2 Saturation Oxygen O2 Source Room air I&O (Last 24 Hrs): Intake and Output Totals x24h 08/22/19 08/23/19 08/24/19 23:59 23:59 23:59 Intake Total 4880 3110.416 169.584 Output Total 3 Balance 4880 3107.416 169.584 General: Other (Sleepy) HEENT: Mucous membr. moist/pink Neck: Supple, No JVD Neuro: Other (Sleepy currently) Cardiovascular: Regular rate Respiratory: No respiratory distress, Other (Dominished at R base, no wheezing) Abdomen: Soft Extremities: No edema - Results Results: Laboratory Results WBC 14.8 x10^3/uL (4.8-10.8) H 08/24/19 05:00 RBC 3.56 10^6/uL (4.20-5.40) L 08/24/19 05:00 Hgb 10.8 g/dL (12.0-16.0) L 08/24/19 05:00 Hct 34.6 % (37.0-47.0) L 08/24/19 05:00 MCV 97.2 fL (81.0-99.0) 08/24/19 05:00 MCH 30.3 pg (27.0-31.0) 08/24/19 05:00 MCHC 31.2 g/dL (32.0-36.0) L 08/24/19 05:00 RDW 13.7 % (12.0-15.0) 08/24/19 05:00 Plt Count 230 10^3/uL (130-450) 08/24/19 05:00 MPV 9.1 fL (7.9-10.8) 08/24/19 05:00 Neut # (Auto) 13.6 10^3/uL (1.5-6.6) H 08/24/19 05:00 Lymph # (Auto) 0.5 10^3/uL (1.5-3.5) L 08/24/19 05:00 Amelia # (Auto) 0.6 10^3/uL (0.0-1.0) 08/24/19 05:00 Eos # (Auto) 0.0 10^3/uL (0.0-0.7) 08/24/19 05:00 Baso # (Auto) 0.0 10^3/uL (0.0-0.1) 08/24/19 05:00 Absolute Nucleated RBC 0.00 x10^3/uL 08/24/19 05:00 Nucleated RBC % 0.0 /100WBC 08/24/19 05:00 Sodium 144 mmol/L (135-145) 08/24/19 05:00 Potassium 3.1 mmol/L (3.5-5.0) L 08/24/19 05:00 Chloride 116 mmol/L (101-111) H 08/24/19 05:00 Carbon Dioxide 24 mmol/L (21-32) 08/24/19 05:00 Anion Gap 4.0 (6-13) L 08/24/19 05:00 BUN 32 mg/dL (6-20) H 08/24/19 05:00 Creatinine 2.4 mg/dL (0.4-1.0) H 08/24/19 05:00 Estimated GFR (MDRD) 19 (>89) L 08/24/19 05:00 Glucose 188 mg/dL (70-100) H 08/24/19 05:00 Calcium 9.7 mg/dL (8.5-10.3) 08/24/19 05:00 Phosphorus 2.2 mg/dL (2.5-4.6) L 08/22/19 04:45 Magnesium 1.1 mg/dL (1.7-2.8) L 08/23/19 05:35 Total Bilirubin 1.1 mg/dL (0.2-1.0) H 08/19/19 16:38 AST 70 IU/L (10-42) H 08/19/19 16:38 ALT 22 IU/L (10-60) 08/19/19 16:38 Alkaline Phosphatase 194 IU/L (42-121) H 08/19/19 16:38 Total Protein 8.0 g/dL (6.7-8.2) 08/19/19 16:38 Albumin 3.8 g/dL (3.2-5.5) 08/19/19 16:38 Globulin 4.2 g/dL (2.1-4.2) 08/19/19 16:38 Albumin/Globulin Ratio 0.9 (1.0-2.2) L 08/19/19 16:38 Lipase 34 U/L (22-51) 08/19/19 16:38 PTH Intact 3077 pg/mL (12-88) H 08/19/19 16:38 Urine Color YELLOW 08/19/19 18:30 Urine Clarity CLEAR (CLEAR) 08/19/19 18:30 Urine pH 6.0 PH (5.0-7.5) 08/19/19 18:30 Ur Specific [place] 1.020 (1.002-1.030) 08/19/19 18:30 Urine Protein 100 mg/dL (NEGATIVE) H 08/19/19 18:30 Urine Glucose (UA) NEGATIVE mg/dL (NEGATIVE) 08/19/19 18:30 Urine Ketones TRACE mg/dL (NEGATIVE) 08/19/19 18:30 Urine Occult Blood LARGE (NEGATIVE) H 08/19/19 18:30 Urine Nitrite NEGATIVE (NEGATIVE) 08/19/19 18:30 Urine Bilirubin NEGATIVE (NEGATIVE) 08/19/19 18:30 Urine Urobilinogen 0.2 (NORMAL) E.U./dL (NORMAL) 08/19/19 18:30 Ur Leukocyte Esterase NEGATIVE (NEGATIVE) 08/19/19 18:30 Urine RBC None Seen /HPF (0-5) 08/19/19 18:30 Urine WBC 0-3 /HPF (0-5) 08/19/19 18:30 Ur Squamous Epith Cells NONE SEEN (<= Few) 08/19/19 18:30 Urine Bacteria None Seen /HPF (None Seen) 08/19/19 18:30 Ur Microscopic Review INDICATED 08/19/19 18:30 Urine Culture Comments NOT INDICATED 08/19/19 18:30
[2019-08-24] MEDS: FUROSEMIDE 20 MG/2 ML VIAL IVP SCH (08:12)
[2019-08-24] MEDS: FAMOTIDINE 20 MG/2 ML VIAL IVP SCH (08:12)
[2019-08-24] MEDS: cefTRIAXone 1 GM in SODIUM CHLORIDE 0.9% MINIBAG 100 ML IV SCH (09:53)
[2019-08-24] MEDS: POLYETHYLENE GLYCOL 3350 17 GM PACKET PO SCH (09:54)
[2019-08-24] MEDS: SENNA 8.6 MG TABLET PO SCH (09:55)
[2019-08-24] MEDS: POTASSIUM CHLOR 10 MEQ/100 ML 10 MEQ/100 ML BAG IV SCH ×4 (10:57→16:40)
[2019-08-24] MEDS ORDERED: cloNIDine 0.2 MG PATCH TOP SCH ×2 (13:14→14:00)
[2019-08-24] MEDS: METOPROLOL 5 MG/5 ML VIAL IVP SCH ×2 (14:09→22:16)
[2019-08-24] MEDS ORDERED: hydrALAZINE INJ 20 MG/ML VIAL IVP SCH (16:00)
[2019-08-25] MEDS: LABETALOL 20 MG/4 ML SYRINGE IVP PRN (00:28)
[2019-08-25] MEDS: hydrALAZINE INJ 20 MG/ML VIAL IVP SCH ×3 (02:24→18:21)
[2019-08-25 04:52] LABS: BASOPHILS % (AUTO) 0.2 %; HGB - HEMOGLOBIN 10.5 g/dL (12.0-16.0); LYMPHOCYTES # (AUTO) 0.4 10^3/uL (1.5-3.5); LYMPHOCYTES % (AUTO) 2.7 %; MEAN CORPUSCULAR HEMOGLOBIN 29.3 pg (27.0-31.0); MEAN CORPUSCULAR HGB CONC 30.6 g/dL (32.0-36.0); MEAN CORPUSCULAR VOLUME 95.8 fL (81.0-99.0); MEAN PLATELET VOLUME 9.3 fL (7.9-10.8); MONOCYTES # (AUTO) 0.4 10^3/uL (0.0-1.0); MONOCYTES % (AUTO) 2.8 %; NEUTROPHILS # (AUTO) 14.7 10^3/uL (1.5-6.6); NEUTROPHILS % (AUTO) 93.2 %; PLT - PLATELET COUNT 232 10^3/uL (130-450); RED BLOOD COUNT 3.58 10^6/uL (4.20-5.40); RED CELL DISTRIBUTION WIDTH 13.9 % (12.0-15.0); WHITE BLOOD COUNT 15.7 x10^3/uL (4.8-10.8)
[2019-08-25 05:04] LABS: CALCIUM 9.2 mg/dL (8.5-10.3); CREATININE 2.4 mg/dL (0.4-1.0)
[2019-08-25] MEDS: metroNIDAZOLE 500 MG/100 ML 500 MG/100 ML BAG IV SCH ×3 (06:39→21:32)
[2019-08-25] MEDS: METOPROLOL 5 MG/5 ML VIAL IVP SCH ×3 (06:43→21:43)
[2019-08-25] MEDS: SODIUM CHLORIDE FLUSH 0.9% 10 ML SYRINGE IVP SCH ×2 (07:52→16:55)
[2019-08-25] MEDS: FAMOTIDINE 20 MG/2 ML VIAL IVP SCH (09:10)
[2019-08-25] MEDS: cefTRIAXone 1 GM in SODIUM CHLORIDE 0.9% MINIBAG 100 ML IV SCH (09:10)
[2019-08-25] MEDS: SENNA 8.6 MG TABLET PO SCH (09:11)
[2019-08-25] MEDS: ACETAMINOPHEN 325 MG TABLET PO PRN (10:23)
[2019-08-25] MEDS: DEXTROSE 5%-0.9% NACL 1,000 ML IV SCH (14:08)
--- NOTE | 2019-08-25 18:44 | PROVIDER PROGRESS NOTE ---
Assessment/Plan - Problem List (1) HCAP (healthcare-associated pneumonia) Assessment/Plan: Continue iv antibiotics If mental status improves and if she agrees to take pills, would transition to po antibiotics Awaiting Palliative Care to see, since she may need transition to Hospice. (Today the Palliative [facility] provider was unexpectedly unavailable due to a family emergency, but should be here tomorrow) (2) Acute metabolic encephalopathy Assessment/Plan: Since the Ca is now normal range, she could be somnolent from worsening uremia. Palliative Care awaited and I recommended Hospice transition to daughter yesterday (3) Uncontrolled hypertension Assessment/Plan: BP is better with Clonidone 0.2 mg weekly and with scheduled iv Lopressor and iv hydralazine if needed To be DCh on no po meds will mean the plan is for end of life (4) ARF (acute renal failure) Qualifiers: Acute renal failure type: unspecified Qualified Code(s): N17.9 - Acute kidney failure, unspecified Assessment/Plan: She is now oliguric and the creat has risen since yesterday. Poor prognosis (5) Hypercalcemia Assessment/Plan: resolved (6) Hyperparathyroidism Assessment/Plan: Chronic problem and no surgery was desired by the patient (7) Hypomagnesemia Assessment/Plan: Replace and follow labs (8) Hypokalemia Assessment/Plan: Replace and monitor (9) Non compliance with medical treatment Assessment/Plan: As per Hx, previously discussed (10) Anorexia Assessment/Plan: Worse po intake (11) Severe protein-calorie malnutrition Assessment/Plan: As per above, and previously documented (12) Asthma Qualifiers: Asthma severity: unspecified severity Assessment/Plan: prn nebs ordered - Current Meds Current Meds: Current Medications Generic Name Dose Route Start Last Admin Trade Name Freq PRN Reason Stop Dose Admin Acetaminophen 650 mg 08/19/19 19:42 08/25/19 10:23 Tylenol PO 650 mg Q4HR PRN Administration Pain 1 to 4 Clonidine HCl 1 patch 08/24/19 14:00 08/24/19 14:05 Navntasr-Caj-6 TOP 1 patch Q7D MARIBEL Administration Famotidine 20 mg 08/22/19 09:00 08/25/19 09:10 Pepcid IVP 20 mg DAILY MARIBEL Administration Hydralazine HCl 10 mg 08/25/19 02:00 08/25/19 18:21 Apresoline Inj IVP Not Given Q8H MARIBEL Dextrose/Sodium Chloride 1,000 mls @ 50 mls/hr 08/23/19 18:03 08/25/19 14:08 D5ns IV 50 mls/hr .Q20H MARIBEL Administration Ceftriaxone Sodium 1 gm/ 100 mls @ 200 mls/hr 08/23/19 19:00 08/25/19 09:51 Sodium Chloride IV Infused DAILY MARIBEL Infusion Metronidazole 500 mg in 100 mls @ 100 mls/hr 08/23/19 20:00 08/25/19 15:30 Flagyl 500 Mg/100 Ml IV Infused Q8HR MARIBEL Infusion Labetalol HCl 10 mg 08/22/19 22:47 08/25/19 00:28 Trandate Syringe IVP 10 mg Q4H PRN Administration PER PHYSICIAN ORDER Metoprolol Tartrate 2.5 mg 08/24/19 14:00 08/25/19 14:08 Lopressor Inj IVP 2.5 mg Q8H MARIBEL Administration Oxycodone HCl 5 mg 08/19/19 19:42 08/21/19 16:56 Roxicodone PO 5 mg Q4HR PRN Administration Pain 5 to 7 Senna 8.6 - 17.2 mg 08/22/19 09:00 08/25/19 09:11 Senokot PO Not Given DAILY MARIBEL Sodium Chloride 10 ml 08/19/19 19:42 08/22/19 19:35 Normal Saline Flush 0.9% IVP 10 ml PRN PRN Administration NEEDED PER PROVIDER ORDERS Sodium Chloride 10 ml 08/20/19 01:00 08/25/19 16:55 Normal Saline Flush 0.9% IVP Not Given 0100,0900,1700 MARIBEL - Lab Result Fish Bone Diagrams: 08/25/19 04:35 08/26/19 05:05 - Additional Planning My Orders: My Active Orders 08/25/19 02:00 hydrALAZINE INJ [Apresoline Inj] 10 mg IVP Q8H Subjective - Subjective Patient Reports: Resting Comfortably Objective Vital Signs: Vital Signs - 24 hr 08/24/19 08/24/19 08/24/19 18:45 19:00 19:15 Temperature Heart Rate Heart Rate [ 79 78 77 Brachial] Respiratory 16 17 16 Rate Blood Pressure Blood Pressure 186/80 H 177/83 H 175/85 H [Left Brachial artery] Blood Pressure [Right Brachial artery] O2 Saturation 96 96 96 08/24/19 08/24/19 08/24/19 22:16 22:18 22:20 Temperature Heart Rate Heart Rate [ 80 74 Brachial] Respiratory 17 16 Rate Blood Pressure 152/89 H Blood Pressure 152/89 H 186/90 H [Left Brachial artery] Blood Pressure [Right Brachial artery] O2 Saturation 93 94 08/24/19 08/24/19 08/24/19 22:25 22:30 22:45 Temperature Heart Rate Heart Rate [ 73 66 72 Brachial] Respiratory 16 16 Rate Blood Pressure Blood Pressure 165/95 H 176/74 H 164/75 H [Left Brachial artery] Blood Pressure [Right Brachial artery] O2 Saturation 92 91 L 08/24/19 08/24/19 08/25/19 23:00 23:16 00:09 Temperature Heart Rate Heart Rate [ 73 73 76 Brachial] Respiratory 18 Rate Blood Pressure Blood Pressure 174/89 H [Left Brachial artery] Blood Pressure 196/85 H 185/90 H [Right Brachial artery] O2 Saturation 95 08/25/19 08/25/19 08/25/19 00:35 00:40 00:46 Temperature Heart Rate Heart Rate [ 63 64 62 Brachial] Respiratory 16 Rate Blood Pressure Blood Pressure [Left Brachial artery] Blood Pressure 129/68 131/66 H 143/74 H [Right Brachial artery] O2 Saturation 08/25/19 08/25/19 08/25/19 01:15 02:27 02:32 Temperature 35.4 C L Heart Rate Heart Rate [ 64 67 71 Brachial] Respiratory Rate Blood Pressure Blood Pressure 145/101 H 149/96 H 157/78 H [Left Brachial artery] Blood Pressure [Right Brachial artery] O2 Saturation 08/25/19 08/25/19 08/25/19 02:36 02:44 03:00 Temperature Heart Rate Heart Rate [ 69 74 68 Brachial] Respiratory Rate Blood Pressure Blood Pressure 135/85 H 130/66 119/72 [Left Brachial artery] Blood Pressure [Right Brachial artery] O2 Saturation 08/25/19 08/25/19 08/25/19 03:15 03:30 06:40 Temperature 35.3 C L Heart Rate Heart Rate [ 60 73 Brachial] Respiratory 18 Rate Blood Pressure Blood Pressure 129/74 138/70 H 152/98 H [Left Brachial artery] Blood Pressure [Right Brachial artery] O2 Saturation 96 08/25/19 08/25/19 08/25/19 06:43 06:45 06:53 Temperature 35.6 C L Heart Rate Heart Rate [ 65 68 Brachial] Respiratory Rate Blood Pressure 152/98 H Blood Pressure 136/66 H 163/79 H [Left Brachial artery] Blood Pressure [Right Brachial artery] O2 Saturation 08/25/19 08/25/19 08/25/19 06:58 07:11 07:41 Temperature 35.3 C L Heart Rate Heart Rate [ 68 69 76 Brachial] Respiratory 23 Rate Blood Pressure Blood Pressure 157/75 H 148/74 H 152/98 H [Left Brachial artery] Blood Pressure [Right Brachial artery] O2 Saturation 95 08/25/19 08/25/19 08/25/19 07:55 10:10 10:15 Temperature Heart Rate Heart Rate [ 68 81 Brachial] Respiratory Rate Blood Pressure 143/97 H Blood Pressure 157/75 H 158/83 H [Left Brachial artery] Blood Pressure [Right Brachial artery] O2 Saturation 08/25/19 08/25/19 08/25/19 10:20 10:28 11:01 Temperature Heart Rate Heart Rate [ 81 96 Brachial] Respiratory Rate Blood Pressure Blood Pressure 134/75 H 108/70 102/83 H [Left Brachial artery] Blood Pressure [Right Brachial artery] O2 Saturation 08/25/19 08/25/19 08/25/19 14:10 16:32 17:05 Temperature 35.3 C L 35.7 C L Heart Rate 82 Heart Rate [ 82 77 Brachial] Respiratory 20 18 Rate Blood Pressure Blood Pressure 154/84 H 99/58 L [Left Brachial artery] Blood Pressure [Right Brachial artery] O2 Saturation 95 96 08/25/19 18:21 Temperature Heart Rate Heart Rate [ Brachial] Respiratory Rate Blood Pressure 99/58 L Blood Pressure [Left Brachial artery] Blood Pressure [Right Brachial artery] O2 Saturation Oxygen O2 Source Room air I&O (Last 24 Hrs): Intake and Output Totals x24h 08/23/19 08/24/19 08/25/19 23:59 23:59 23:59 Intake Total 3110.416 7396.681 1810 Output Total 3 450 Balance 3107.416 8672.757 1814 General: Other (Lethargic) HEENT: Mucous membr. moist/pink Neck: Supple Neuro: Other (Lethargic, non-focal grossly) Cardiovascular: Regular rate Respiratory: No respiratory distress Abdomen: Soft Extremities: No edema - Results Results: Laboratory Results WBC 15.7 x10^3/uL (4.8-10.8) H 08/25/19 04:35 RBC 3.58 10^6/uL (4.20-5.40) L 08/25/19 04:35 Hgb 10.5 g/dL (12.0-16.0) L 08/25/19 04:35 Hct 34.3 % (37.0-47.0) L 08/25/19 04:35 MCV 95.8 fL (81.0-99.0) 08/25/19 04:35 MCH 29.3 pg (27.0-31.0) 08/25/19 04:35 MCHC 30.6 g/dL (32.0-36.0) L 08/25/19 04:35 RDW 13.9 % (12.0-15.0) 08/25/19 04:35 Plt Count 232 10^3/uL (130-450) 08/25/19 04:35 MPV 9.3 fL (7.9-10.8) 08/25/19 04:35 Neut # (Auto) 14.7 10^3/uL (1.5-6.6) H 08/25/19 04:35 Lymph # (Auto) 0.4 10^3/uL (1.5-3.5) L 08/25/19 04:35 [place] # (Auto) 0.4 10^3/uL (0.0-1.0) 08/25/19 04:35 Eos # (Auto) 0.0 10^3/uL (0.0-0.7) 08/25/19 04:35 Baso # (Auto) 0.0 10^3/uL (0.0-0.1) 08/25/19 04:35 Absolute Nucleated RBC 0.00 x10^3/uL 08/25/19 04:35 Nucleated RBC % 0.0 /100WBC 08/25/19 04:35 Sodium 145 mmol/L (135-145) 08/25/19 04:35 Potassium 3.3 mmol/L (3.5-5.0) L 08/25/19 04:35 Chloride 116 mmol/L (101-111) H 08/25/19 04:35 Carbon Dioxide 20 mmol/L (21-32) L 08/25/19 04:35 Anion Gap 9.0 (6-13) 08/25/19 04:35 BUN 36 mg/dL (6-20) H 08/25/19 04:35 Creatinine 2.4 mg/dL (0.4-1.0) H 08/25/19 04:35 Estimated GFR (MDRD) 19 (>89) L 08/25/19 04:35 Glucose 167 mg/dL (70-100) H 08/25/19 04:35 Calcium 9.2 mg/dL (8.5-10.3) 08/25/19 04:35 Phosphorus 2.2 mg/dL (2.5-4.6) L 08/22/19 04:45 Magnesium 1.1 mg/dL (1.7-2.8) L 08/23/19 05:35 Total Bilirubin 1.1 mg/dL (0.2-1.0) H 08/19/19 16:38 AST 70 IU/L (10-42) H 08/19/19 16:38 ALT 22 IU/L (10-60) 08/19/19 16:38 Alkaline Phosphatase 194 IU/L (42-121) H 08/19/19 16:38 Total Protein 8.0 g/dL (6.7-8.2) 08/19/19 16:38 Albumin 3.8 g/dL (3.2-5.5) 08/19/19 16:38 Globulin 4.2 g/dL (2.1-4.2) 08/19/19 16:38 Albumin/Globulin Ratio 0.9 (1.0-2.2) L 08/19/19 16:38 Lipase 34 U/L (22-51) 08/19/19 16:38 25-OH Vitamin D Total 12 ng/mL (30-100) L 08/23/19 04:55 PTH Intact 3077 pg/mL (12-88) H 08/19/19 16:38 Urine Color YELLOW 08/19/19 18:30 Urine Clarity CLEAR (CLEAR) 08/19/19 18:30 Urine pH 6.0 PH (5.0-7.5) 08/19/19 18:30 Ur Specific [place] 1.020 (1.002-1.030) 08/19/19 18:30 Urine Protein 100 mg/dL (NEGATIVE) H 08/19/19 18:30 Urine Glucose (UA) NEGATIVE mg/dL (NEGATIVE) 08/19/19 18:30 Urine Ketones TRACE mg/dL (NEGATIVE) 08/19/19 18:30 Urine Occult Blood LARGE (NEGATIVE) H 08/19/19 18:30 Urine Nitrite NEGATIVE (NEGATIVE) 08/19/19 18: Urine Bilirubin NEGATIVE (NEGATIVE) 08/19/19 18:30 Urine Urobilinogen 0.2 (NORMAL) E.U./dL (NORMAL) 08/19/19 18:30 Ur Leukocyte Esterase NEGATIVE (NEGATIVE) 08/19/19 18:30 Urine RBC None Seen /HPF (0-5) 08/19/19 18:30 Urine WBC 0-3 /HPF (0-5) 08/19/19 18:30 Ur Squamous Epith Cells NONE SEEN (<= Few) 08/19/19 18:30 Urine Bacteria None Seen /HPF (None Seen) 08/19/19 18:30 Ur Microscopic Review INDICATED 08/19/19 18: Urine Culture Comments NOT INDICATED 08/19/19:
[2019-08-26] MEDS: SODIUM CHLORIDE FLUSH 0.9% 10 ML SYRINGE IVP SCH ×2 (02:27→08:23)
[2019-08-26] MEDS: hydrALAZINE INJ 20 MG/ML VIAL IVP SCH ×2 (02:33→10:28)
[2019-08-26] MEDS: LEVALBUTEROL 1.25 MG/3 ML NEB INH PRN ×2 (02:45→10:24)
[2019-08-26] MEDS ORDERED: FUROSEMIDE 40 MG/4 ML VIAL IVP STA (03:15)
--- NOTE | 2019-08-26 04:08 | XRAY Report ---
Reason: Hypoxia. Dyspnea. Received IV fluids. Procedure Date: 08/26/2019 Accession Number: [id number] / [id number] Procedure: XR - Chest 1 View X-Ray CPT Code: 47632 Final Report FULL RESULT: EXAM: CHEST RADIOGRAPHY EXAM DATE: 08/26/2019 03:17 AM. CLINICAL HISTORY: Hypoxia. Dyspnea. Received IV fluids. COMPARISON: CHEST 1 VIEW 08/23/2019 4:02 PM. TECHNIQUE: 1 view. FINDINGS: The right lower lobe airspace opacities have increased. There is a small right pleural effusion. The left retrocardiac airspace opacities have also increased. Bilateral interstitial opacities persist. There is no pneumothorax. IMPRESSION: Increased bilateral lower lobe airspace opacities. RADIA
[2019-08-26 05:52] LABS: CREATININE 2.6 mg/dL (0.4-1.0)
[2019-08-26] MEDS: METOPROLOL 5 MG/5 ML VIAL IVP SCH ×2 (06:18→14:36)
[2019-08-26] MEDS ORDERED: DEXTROSE 5% 1,000 ML IV SCH (07:00)
[2019-08-26] MEDS: metroNIDAZOLE 500 MG/100 ML 500 MG/100 ML BAG IV SCH ×2 (07:59→14:36)
[2019-08-26] MEDS: POTASSIUM CHLOR 10 MEQ/100 ML 10 MEQ/100 ML BAG IV SCH ×3 (08:16→11:49)
[2019-08-26] MEDS: cefTRIAXone 1 GM in SODIUM CHLORIDE 0.9% MINIBAG 100 ML IV SCH (08:16)
[2019-08-26] MEDS: SENNA 8.6 MG TABLET PO SCH (08:24)
[2019-08-26] MEDS: FAMOTIDINE 20 MG/2 ML VIAL IVP SCH (08:24)
--- NOTE | 2019-08-26 13:15 | Discharge Plan ---
Discharge Plan Problem Reviewed?: Yes Disposition: 50 Hospice/Home DC/Xfer Condition: Serious Prescriptions: cloNIDine 0.2 MG PATCH [Cnkialow-Jha-8] 1 patch TOP Q7D #4 patch Haloperidol Oral Soln [Haldol Oral Soln] 1 mg PO Q4H PRN #30 ml PRN Reason: Agitation LORazepam [Lorazepam INTENSOL] 0.125 - 0.25 ml PO Q6H PRN #30 ml PRN Reason: Anxiety Morphine Sulfate [Morphine Sulf Oral (Roxanol)] 10 mg PO Q1H PRN #30 ml PRN Reason: Pain/Dyspnea Instruction Topics: Lorazepam tablets, Haloperidol injection, Morphine oral solution Health Concerns: Admitted with high calcium, altered mental status, uncontrolled HTN, failure to thrive and declined to take pills and nutrition by mouth, developed worsening kidney failure and Palliative Care helped transition her to be under Hospice Care. Plan of Treatment: Comfort for the patient, new medications have been prescribed. Care Goals: As above Assessment: Hospice to be started after the patient comes home. Follow-Up Care: Hospice No Smoking: If you smoke, Please STOP! Call for help. Follow-up with: Steph Olvera PA [Primary Care Provider] -
[2019-08-26 16:01] VITALS: BP 132/65
--- NOTE | 2019-08-26 16:19 | CONSULTATION NOTE ---
Palliative Care Consultation - Referral Referring Provider: Dr. Karena Hinton Time of Visit: Referral setting: Hospitalized patient Referral Reason: Acute on chronic renal failure/Hyperparathyroidism/Pneumonia/Goals of Care - Information Sources Records reviewed: RN notes reviewed, Previous records reviewed History/Review of Systems obtained from: Family (daughter Stefanie) Exam limitations: Clinical condition (patient confused and unable to participate in exam) - History of Present Illness Brief History of Present Illness: This is an 84-year-old [place] woman, presented to the hospital 08/19 with severe metabolic encephalopathy, hypo-parathyroidism, and worsening dementia. She did develop hospital-acquired pneumonia 08/23 and has been receiving antibiotics, but her worsening respiratory status, renal status, and confusion has continued to deteriorate fairly quickly particularly over the last 48 hours. Patient had had a fairly acute tire changer the last several weeks, had escalated as far as her dementia symptoms, with increased paranoia, and weakness. She has been living with her daughter for about 3 weeks. She then had a fall at home about 4 5 days ago, and "took to her bed". She has had ongoing weight loss more acutely over the last couple of weeks, and presents today at 89. It is on her second , they have been about 8 to 10 years, they moved into [facility] together from their home about 3 or 4 months ago. She has 1 daughter Stefanie, who is her DPOAE and has been taking care of her these last few weeks. She does recognize her mother is in a steep decline, and does not want her to prolong her suffering. Patient originally been diagnosed with hyperparathyroidism in 2013, had declined surgery at that time, has not been too interested in medical care, and has not been compliant with managing her hypertension, are ongoing medical care. Patient is getting ready to discharge home, there had been some acute confusion regarding palliative versus hospice care, daughter does recognize patient's eminent and decline, and after counseling does agree that this was a better fit. Fortunately hospice of the [facility], was willing to open on Thursday, she does have a hospital bed at home, but could use a new one with side rails and good mattress.She will transition home with BLS, and comfort meds. Medical/Surgical History - Past Medical History Cardiovascular: reports: Hypertension Respiratory: reports: Asthma, Pneumonia Neuro: Dementia Neuro: reports: None Endocrine/Autoimmune: reports: Other (hyperparathyroidsim) GI: reports: None HEAD GREASE MAKER: reports: None : reports: Renal insuffiency HEENT: reports: None Psych: reports: Other Musculoskeletal: reports: Other (bedbound over week; left hip pain) Derm: reports: None MRSA Hx?: No Other Past Medical History: Hyperparathyroidism, Paranoia, delusions - Substance History Use: Uses substance without health or social issues: NONE Social History - Living Situation Living arrangement: At home Living Situation: With family (recently moved in with daughter; has paid caregiver Anabella who speaks [place] through visiting [employer] 8-4 pm; she is also dating a relative) Support System: Patient previously had been quite of a vicious interactive fun woman, per caregiver she left to play cards, she was very social. This is until she had transitioned with more behavioral disturbances around her dementia and most likely her metabolic abnormalities. Her daughter does work at [employer], she has been taking some time off to be able to support her mom and her care needs, as well as hiring some assistance. Family History - Family History Family History: Mother: , Father: , Alcoholism, Sister: Alive and Well (2 alive ), Brother: , Cancer Medications/Allergies - Allergies Allergies/Adverse Reactions: Allergies Allergy/AdvReac Type Severity Reaction Status Date / Time No Known Drug Allergies Allergy Verified 11/25/16 05:53 Review of Systems - Constitutional Constitutional: reports: Weight loss - Ears, Nose & Throat Ears, Nose & Throat: reports: Dry mouth - Gastrointestinal Gastrointestinal: reports: Poor appetite - Genitourinary Genitourinary: reports: Incontinence - Musculoskeletal Musculoskeletal: reports: Other (bedbound) - Integumentary Integumentary: reports: Dryness - Neurological Neurological: reports: Slurred speech (mumbling in [place]an; does speak armenian but reverted back these last weeks) - Psychiatric Psychiatric: reports: Anxiety, Delusions, Hallucinations, Behavior disturbances (paranoia) - Endocrine Endocrine: reports: Other (hyperparathyroidsim) - All Other Systems All Other Systems: reports: Other (limited ROS patient declinine/AMS) Physical Exam - Vital Signs Vital Signs: Vital Signs x48h Temp Pulse Pulse Resp BP BP Pulse Ox 08/26/19 16:00 36.3 C L 75 22 132/65 H 92 08/26/19 14:36 143/65 H 08/26/19 12:04 35.5 C L 76 23 111/77 98 08/26/19 10:28 128/59 L 08/26/19 10:24 69 22 - Physical Exam General Appearance: positive: Mild distress, Anxious Eyes Bilateral: positive: Other (eyes mostly closed) ENT: positive: Dry mucous membranes Neck: positive: No JVD, Trachea midline Cardiovascular: positive: Tachycardia Respiratory: positive: Other (breathing fluctuates with effort;) Abdomen: positive: Soft Skin: positive: Pallor Extremities: positive: No pedal edema, Other (bedbound will need BLS) Neurologic/Psychiatric: positive: Disoriented to person (daughter thinks has recognized her/Anabella), Disoriented to place, Disoriented to time, Weakness, Unintelligible speech, Flat affect Palliative Care - POLST Patient has POLST: Yes POLST Status: DNR, Comfort Measures (Completed NEW POLST with goals of comfort) Pain: No pain Performance Status: He has been bedbound over a week, ever since she had her fall. Patient is maximum assist for all ADLs, has not been eating or drinking today - Palliative Care Discussion: Elroy with Stefanie, discussed at length patient's journey over the last few days to weeks. Patient has been deteriorating fairly rapidly, and fairly acutely over the last few days. She does recognize her mother is heading for an end-of-life event, does want her to be at home, and comfortable. She would like to care for her, she does have support from her caregiver Anabella. Counseling provided regarding palliative care versus hospice care, my recommendation for hospice support and most likely the prognosis of days to weeks for her mother. She does think her mother has some burial/ plans, we did update the POLST as no code and comfort care to reflect her goals. Counseling provided and anticipatory guidance regarding medications, what to expect with the day variation, and what to do if she passes before hospice admit. Met briefly with Anabella as well, she had just lost her last client with dementia, she is quite tearful. Provided her with hard choices for loving people just to be able to review what to expect and in particular you taking care of patients in this age group where focus is for comfort and end-of-life. Call to [facility], they are out ~mid week next week, call to hospice of [facility] and they were able to accommodate admit on Thursday. Both daughter and myself are quite grateful, and relate this typically in the context of what she might need hospital bed, over the bed table, and oxygen.They will arrange for BLS transfer. Results - Lab Results Lab results reviewed: Yes Fish Bones: 08/25/19 04:35 08/26/19 05:05 Lab and Imaging Results: Lab Results x24hrs 08/26/19 Range/Units 05:05 Sodium 149 H (135-145) mmol/L Potassium 3.1 L (3.5-5.0) mmol/L Chloride 120 H* (101-111) mmol/L Carbon Dioxide 21 (21-32) mmol/L Anion Gap 8.0 (6-13) BUN 36 H (6-20) mg/dL Creatinine 2.6 H (0.4-1.0) mg/dL Estimated GFR (MDRD) 18 L (>89) Glucose 150 H (70-100) mg/dL Calcium 9.0 (8.5-10.3) mg/dL Impression and Recommendations - Palliative Care Impression: This is an 84-year-old woman who presents with worsening organ failure particularly around her acute renal failure, some respiratory residual still from her pneumonia, weight loss, and worsening metabolic encephalopathy. Daughters goals are to have her at home, focus on comfort, and transition for end-of-life care with hospice. Palliative care providing support and clarification of goals to assist with transition planning. Recommendations/Counseling Done: 1. Dementia with behavioral disturbances. Daughter reports her agitation has be en very difficult to manage, as well as her anxiety. Counseling provided and recommended comfort medications including Lorazepam and Haldol, this was reviewed by myself, with follow-up from nursing on discharge. 2. Acute renal failure. This is multifactorial in origin, is adding to patient's discomfort and rapid decline, no intervention plan, patient did receive fluids here, to help reverse hypercalcemia regarding the hypoparathyroidism no further treatment will be pursued. 3. Advanced care planning. Counseling provided to the daughter regarding palliative versus hospice, recommendation for hospice care and review of patient's poor prognosis. Referral to hospice of the [facility], as well as recommendations of medications for comfort, nursing to go over further care needs, and review meds again. Coordination of care with hospitalist and discharge business planning analyst. Time Spent: 75 minutes was given 50% of this done and counseling regarding care, transition to hospice, anticipatory guidance and coordination of care with hospitalist, hospice, and discharge planning.
--- NOTE | 2019-08-31 12:05 | DISCHARGE SUMMARY ---
Discharge Summary Admit Date: 08/19/19 Discharge Date: 08/26/19 Discharging Provider: Dr Karena Rubin Primary Care Provider: Steph Olvera Code Status: Do Not Attempt Resuscitation Condition at Discharge: Serious Discharge Disposition: 50 Hospice/Home DC/Xfer - DIAGNOSES Admission Diagnoses: 1) Metabolic encephalopathy 2) Acute Renal Failure 3) Hypercalcemia 4) Hyperparathyroidism 5) HTN, uncontrolled 6) Hx asthma 7) Weight loss Discharge Diagnoses with Status of Each Condition: See below - HPI History of Present Illness: This is an 84 y/o femal e of [place] descent, who has a Hx of asthma, HTN, non- compliance with medical management, hypercalcemia since 2012, found to have hyperparathyroidism in 2013, was offered parathyroid surgery and declined it, has dementia, and recent delusiuons and paranoia. She has been living with the daughter, recently requiring help with all ADLs and progressively losing weight (weight was 166 in 2006, down to 113 in 2018), declining any meds for HTN or calcium management, and refusing food. She fell trying to get out of bed and was confused and brought to the ER. She was dry, mumbling, BP was 193/100, serum Calcium was 16.2, serum PTH 3077, BUN/creat 59/3.3. XRays of pelvis and hips showed no fractures or dislocations, and she was admitted for management. - HOSPITAL COURSE Hospital Course: (1) HCAP (healthcare-associated pneumonia) On the 6th day of hospitalization she developed tachypnea, and a CXR was done, concerned for volume overload since she was getting continuous iv hydration to treat the hypercalcemia,. The CXR showed a RLL infiltrate. She received a course of iv antibiotics and had significant symptom improvement. (2) Acute metabolic encephalopathy This was felt to be related to her hypercalcemia and uremia. Both improved with hydration and she was able to converse and feed herself but did tell her COLD MEAT CHEF that she "did not want to live anymore, and that was why she refused a diet". Her mentation again worsened despite normalization of serum calcium, felt to be due to worsening renal function and uremia again. Palliative Care was offered, and Gogo Mcnally NP saw the patient and met the daughter here and recommended Hospice. The patient was discharged home with comfort care, accepted under Hospice care. (3) Uncontrolled hypertension The patient had not taken her home meds of Amlodipine and Losartan for a long time, and they were ordered to be restarted here, but she refused to swallow any pills. She was given several doses of iv Hydralazine and iv Labetolol and then was started on a Clonidone patch, with the dose increased and she was sent home with this. (4) ARF (acute renal failure) The BUN/creat had some improvement to 28/2.2. Then she became oliguric, despite iv fluids, and the creat coty steadily (it was 2.6 at discharge). A poor prognosis was communicated to the daughter at bedside. (5) Hypercalcemia IV saline was started at admission and daily serum calcium monitored. The Calcium improved daily. (6) Hyperparathyroidism Chronic problem and no surgery was desired by the patient many years ago. (7) Hypomagnesemia Replaced and labs followed. (8) Hypokalemia Replaced and monitored daily (9) Non compliance with medical treatment As per history, previously discussed (10) Anorexia As per history and shge eventually refused po intake here (11) Severe protein-calorie malnutrition As per above, and documented in our records. (12) Asthma There were prn nebs ordered - ALLERGIES Allergies/Adverse Reactions: Allergies Allergy/AdvReac Type Severity Reaction Status Date / Time No Known Drug Allergies Allergy Verified 11/25/16 05:53 - MEDICATIONS Home Medications: Ambulatory Orders Medication Instructions Recorded Confirmed Haloperidol Oral Soln [Haldol Oral 1 mg PO Q4H PRN #30 ml 08/26/19 Soln] LORazepam [Lorazepam INTENSOL] 0.125 - 0.25 ml PO Q6H PRN #30 ml 08/26/19 Morphine Sulfate [Morphine Sulf 10 mg PO Q1H PRN #30 ml 08/26/19 Oral (Roxanol)] cloNIDine 0.2 MG PATCH 1 patch TOP Q7D #4 patch 08/26/19 [[id number]] - PHYSICAL EXAM AT DISCHARGE General Appearance: positive: Lethargic Eyes Bilateral: positive: Other (Sleeping, but no inflammation) ENT: positive: Other (Moist mucosa) Neck: positive: Nml inspection Respiratory: positive: No respiratory distress Cardiovascular: positive: Regular rate & rhythm, No murmur Abdomen: positive: Other (Soft) Extremities: positive: No pedal edema Neurologic/Psychiatric: positive: Other (Obtunded, not responding to name.) - LABS Result Diagrams: 08/25/19 04:35 08/26/19 05:05 - DIAGNOSTIC IMAGING Diagnostic Imaging Results: Final report reviewed - FOLLOW UP Follow Up: Hospice Care - TIME SPENT Time Spent in Discharge (Minutes): 30
== END 2019-08-26 16:19 | disposition hospice, home (50) | DRG 70 ==
LOC: ED 15:27 → MS2 19:42
PROVIDERS: ADMIT Specialist; ATTEND Internal Medicine
DX: G93.41 Metabolic encephalopathy (principal); J18.9 Pneumonia, unspecified organism; E43 Unspecified severe protein-calorie malnutrition; N17.9 Acute kidney failure, unspecified; Z68.1 Body mass index [BMI] 19.9 or less, adult; E21.3 Hyperparathyroidism, unspecified; Y95 Nosocomial condition; I12.9 Hypertensive chronic kidney disease with stage 1 through stage 4 chronic kidney disease, or unspecified chronic kidney disease; N18.3 Chronic kidney disease, stage 3 (moderate); E87.6 Hypokalemia; J45.909 Unspecified asthma, uncomplicated; R63.0 Anorexia; F03.90 Unspecified dementia, unspecified severity, without behavioral disturbance, psychotic disturbance, mood disturbance, and anxiety; F22 Delusional disorders; M25.551 Pain in right hip; R32 Unspecified urinary incontinence; R31.9 Hematuria, unspecified; H91.90 Unspecified hearing loss, unspecified ear; Z66 Do not resuscitate; Z51.5 Encounter for palliative care; Z91.128 Patient's intentional underdosing of medication regimen for other reason; Z91.11 Patient's noncompliance with dietary regimen; Z91.81 History of falling
CPT/HCPCS: 36415; 51701; 71045; 73502; 80048; 80053; 81001; 82306; 83690; 83735; 83970; 84100; 85025; 87040; 94640; 96360; 97162; 97530; 99223; 99285; A6250; A9270; J0897; J7040; J7120; 81003; 87086

== ENCOUNTER 2019-08-26 16:19 | Outpatient (CLI) | payer MEDICARE, OTHER | END 2019-08-26 16:20 | disposition home or self-care (01) | LOC: EMS 16:19 | PROVIDERS: ATTEND Surgery | DX: R41.82 Altered mental status, unspecified (principal); R45.1 Restlessness and agitation; Z74.01 Bed confinement status | CPT/HCPCS: A0425; A0428 ==

== ENCOUNTER 2019-08-27 16:01 | Outpatient (CLI) | payer MEDICARE, OTHER | END 2019-08-27 16:02 | disposition E | LOC: EMS 16:01 | PROVIDERS: ATTEND Surgery ==